=== PATIENT | female | born 1935 | race Caucasian/White ===

== ENCOUNTER 2016-03-24 11:20 | Inpatient (IN) | payer MEDICARE, MEDICAID ==
[2016-03-24] MEDS ORDERED: METHYLPREDNISOLONE 125 MG/2 ML VIAL IV ONE (11:45)
[2016-03-24] MEDS ORDERED: ALBUTEROL 0.083% 3 ML NEB NEB ONE (11:45)
[2016-03-24] MEDS ORDERED: Albuterol/Ipratropium Neb 3 ML NEB NEB ONE (11:45)
[2016-03-24] MEDS ORDERED: NS 1,000 ML IV ONE (11:50)
[2016-03-24 11:51] LABS: AUTOMATED BASOPHIL 0.3 % (0-2); AUTOMATED EOSINOPHIL 0.9 % (0-5); AUTOMATED LYMPH 12.1 % (17-44); AUTOMATED MONOCYTE 8.3 % (3-10); AUTOMATED NEUTROPHIL 78.4 % (45-76); MPV 6.8 fL (7.4-10.4)
--- NOTE | 2016-03-24 11:53 | EDPRACDOC ---
- General Information Information Source: Patient Mode of Arrival: Ambulance - History of Present Illness Onset: days HPI: Pt c/o L chest pain radiating to L shoulder, sob, productive cough, leg swelling x days. Pt states recently admitted at [facility] for PNA and bronchitis. Denies fever, abd pain, changes in bowel or bladder, rash. Pt currently at rehab facility and was put on oxygen. Chest Pain Location: Reports: Left Chest Pain Radiation: Reports: Shoulder (L) Symptoms Occur: Reports: Gradually Cardiac Risk Factors: Reports: Smoker (quit in August) Prehospital Care: Reports: SL NTG Pain Came On: Reports: Gradually Pain Status: Present Now Pain Description: Reports: Tightness Pain Severity: Moderate Pain Worsens With: Reports: Nothing Pain Improves With: Reports: Nothing Associated Signs and Symptoms: Reports: SOB <Winifred Ta - Last Filed: 03/24/16 12:34> - History of Present Illness HPI: MD NOTE SEEN AND EXAMINED; OLD RECORDS REVIEWED; HERE WITH SHOB; MED LIST REVIEWED. NSR CURRENTLY; WILL TX FOR HCAP <Sushil Leiva - Last Filed: 03/24/16 12:37> - General Information Stated Complaint: CHEST PAIN, SHOB Time Seen by Provider: 03/24/16 11:44 Home Medications: Home Medications Acetaminophen [Mapap] 1,000 mg PO Q8H PRN 03/24/16 Acidoph/L.bulg/Bif.b/S.thermop [Stephanie-Bid Caplet] 1 tab PO BID 03/24/16 Albuterol/Ipratropium Neb [Duoneb] 3 ml NEB Q6H 03/24/16 Albuterol/Ipratropium Neb [Duoneb] 3 ml NEB Q6H PRN 03/24/16 Bisacodyl [Dulcolax] 5 mg PO DAILY PRN 03/24/16 Butalbital/Acetaminophen [Tencon 50-325 mg Tablet] 2 tab PO Q6H PRN 03/24/16 Cyclobenzaprine HCl [Flexeril] 5 mg PO Q8H PRN 03/24/16 Diltiazem HCl [Diltiazem 24Hr ER] 180 mg PO DAILY 03/24/16 Doxepin HCl 50 mg PO QHS 03/24/16 Furosemide [Lasix] 40 mg PO DAILY PRN 03/24/16 Gabapentin 600 mg PO TID 03/24/16 Insulin Detemir [Levemir Flextouch] 30 unit SQ QAM 03/24/16 Isosorbide Mononitrate [Isosorbide Mononitrate ER] 30 mg PO DAILY 03/24/16 Levofloxacin [Levaquin] 500 mg PO DAILY 03/24/16 Levothyroxine Sodium [Synthroid] 125 mcg PO DAILY 03/24/16 Lisinopril [Zestril] 2.5 mg PO DAILY 03/24/16 Magnesium Oxide [Mag-Ox] 400 mg PO BID 03/24/16 Midodrine HCl 5 mg PO TID 03/24/16 Nicotine [Nicoderm] 21 mg TOP DAILY 03/24/16 Nitroglycerin [Nitrostat] 0.4 mg SL Q5MX3 PRN 03/24/16 Omeprazole 20 mg PO DAILY 03/24/16 Ondansetron HCl [Zofran] 4 mg PO Q8H PRN 03/24/16 Oxycodone HCl/Acetaminophen [Percocet 5-325 mg Tablet] 2 tab PO Q4H PRN Pravastatin [Pravachol] 40 mg PO QHS 03/24/16 Prednisone [Deltasone, Orasone] 10 mg PO DIR 03/24/16 Ranolazine [Ranexa] 500 mg PO Q12H 03/24/16 Sennosides 17.2 mg PO QHS 03/24/16 Sucralfate [Carafate] 1 gm PO QID 03/24/16 Topiramate [Topamax] 50 mg PO QHS 03/24/16 Warfarin Sodium [Coumadin] 5 mg PO DAILY 03/24/16 Allergies/Adverse Reactions: Allergies Allergy/AdvReac Type Severity Reaction Status Date / Time aspirin [From Percodan] Allergy Unknown Verified 03/24/16 12:20 atropine Allergy Unknown Verified 03/24/16 12:01 clarithromycin [From Biaxin] Allergy Unknown Verified 03/24/16 12:01 codeine Allergy Unknown Verified 03/24/16 12:01 diazepam [From Valium] Allergy Unknown Verified 03/24/16 12:20 erythromycin base Allergy Unknown Verified 03/24/16 12:01 fenoprofen [From Nalfon] Allergy Unknown Verified 03/24/16 12:20 levallorphan Allergy Unknown Verified 03/24/16 12:01 meperidine [From Demerol] Allergy Unknown Verified 03/24/16 12:01 morphine Allergy Unknown Verified 03/24/16 12:20 naloxone Allergy Unknown Verified 03/24/16 12:20 oxycodone Allergy Unknown Verified 03/24/16 12:20 Penicillins Allergy Unknown Verified 03/24/16 12:20 pentazocine [From Talwin] Allergy Unknown Verified 03/24/16 12:20 prochlorperazine Allergy Unknown Verified 03/24/16 12:01 [From Compazine] Sulfa (Sulfonamide Allergy Unknown Verified 03/24/16 12:20 Antibiotics) ED Past Medical History - History Reviewed Yes Nurses notes reviewed and agree except as marked - Social Medical History Smoking Status: Former smoker ETOH: None Substance Abuse: None <Winifred Ta - Last Filed: 03/24/16 12:34> EDM Review of Systems - Review of Systems Constitutional: Fever, Weakness Ears: No Symptoms Reported. negative: Pain, Hearing Loss, Drainage, Ear Pulling Throat: No Symptoms Reported. negative: Pain, Swelling Nose: No Symptoms Reported. negative: Congestion, Bleeding, Discharge, Injection, Swelling, Deformity, Ecchymosis, Tender, Abrasion, Laceration Mouth: No Symptoms Reported. negative: Pain, Drooling Respiratory: Cough, Shortness of Breath Cardiovascular: Chest Pain Gastrointestinal: No Symptoms Reported. negative: Pain, Constipation, Nausea, Vomiting, Diarrhea, Melena, Formula Intolerance Genitourinary: No Symptoms Reported. negative: Dysuria, Hematuria, Frequency, Discharge, Bleeding, Testicular Pain, Neurological: No Symptoms Reported. negative: Headache, Dizziness, Seizure, Numbness, Weakness, Speech Difficulty, Gait Difficulty Musculoskeletal: No Symptoms Reported. negative: Neck, Chestwall, Ribs, Back, Shoulder, Arm, Elbow, Forearm, Wrist, Hand, Pelvis, Hip, Femur, Knee, Leg, Ankle , Foot Integumentary: No Symptoms Reported. negative: Itching, Rash, Bruising, Wound Allergic/Immunologic: No Symptoms Reported. negative: Hives, Itching Hematologic: No Symptoms Reported. negative: Lymphadenopathy, Easy Bruising, Easy Bleeding Psychiatric: No Symptoms Reported. negative: Anxiety, Depression, Hallucinations, Insomnia, Suicidal <Winifred Ta E - Last Filed: 03/24/16 12:34> - Physical Exam Constitutional: Alert Oriented to: Time, Person, Place Last recorded Vital Signs: Oxygen Pulse Oxygen Saturation O2 Device Oxygen Flow Rate Fraction of Inspired Oxygen ( FIO2) - HEENT Head: Normal ( normocephalic) Eye Exam: Normal (PERRL, EOMI, Sclera white) Neck: Normal (FROM, trachea at midline) - Respiratory/Cardiovascular Respiratory: Rales, Rhonchi Cardiovascular: Normal - GI Auscultation: Normal (NABS) Palpation: Normal (Soft,No rebound or guarding, non distended) Tenderness: Non tender - Musculoskeletal Back: Normal (Non-Tender) Extremities: Edema, Pedal Edema (+1 edema in feet) - Integumentary Skin: Normal, Warm, Dry Lymphatics: Normal (no adenopathy) - Neurologic Memory Impaired: Normal Motor Function: Normal (Normal tone, Pulses 2+ No cyanosis or edema, FROM) Mood Description: Normal Perception: Normal <Winifred Ta - Last Filed: 03/24/16 12:34> - Physical Exam Last recorded Vital Signs: Last Vital Signs Temp 98.9 F 03/24/16 11:20 Pulse 89 03/24/16 11:20 Resp 20 03/24/16 11:30 BP 94/51 L 03/24/16 11:20 Pulse Ox 78 L 03/24/16 11:20 Oxygen Pulse Oxygen Saturation 78 O2 Device Nasal Cannula Oxygen Flow Rate 2 Fraction of Inspired Oxygen ( FIO2) <Sushil Leiva - Last Filed: 03/24/16 12:37> ED Chest Pain Exam - Respiratory/Cardiovascular Respiratory: Rales, Rhonchi Cardiovascular/Chest: Normal Radial Pulse: Normal Edema: 1+ Chest Palpation: Normal (No chest tenderness) <Winifred Ta - Last Filed: 03/24/16 12:34> - Action ASA given in the ED: Yes - Results 03/24/16 11:40 03/24/16 11:40 03/24/16 12:31 Laboratory Results - last 24 hr 03/24/16 03/24/16 03/24/16 11:40 11:40 11:40 WBC 10.3 RBC 3.48 L Hgb 10.8 L Hct 32.4 L MCV 93 MCH 31.0 MCHC 33.2 RDW 15.4 H Plt Count 351 MPV 6.8 L Neut % (Auto) 78.4 H Lymph % (Auto) 12.1 L [place] % (Auto) 8.3 Eos % (Auto) 0.9 Baso % (Auto) 0.3 Absolute Neuts (auto) 8.03 Absolute Lymphs (auto) 1.24 PT 30.8 H INR 3.0 APTT 40.3 H Puncture Site pH pCO2 pO2 HCO3 Total CO2 Base Excess FiO2 % Specimen Drawn By Sodium 134 L Potassium 4.0 Chloride 97 L Carbon Dioxide 29 Anion Gap 12 BUN 12 Creatinine 0.80 Estimated GFR (MDRD) > 60 Glucose 181 H Calculated Osmolality 263 L Lactic Acid Calcium 8.4 Corrected Calcium 9.3 Total Bilirubin 0.4 AST 15 ALT 24 Alkaline Phosphatase 146 Troponin I 0.07 Qhz-N-Gquyyzbqnwh Pept 3140 H Total Protein 6.4 Albumin 3.1 L 03/24/16 03/24/16 11:40 11:50 WBC RBC Hgb Hct MCV MCH MCHC RDW Plt Count MPV Neut % (Auto) Lymph % (Auto) [place] % (Auto) Eos % (Auto) Baso % (Auto) Absolute Neuts (auto) Absolute Lymphs (auto) PT INR APTT Puncture Site Right radial pH 7.430 pCO2 43.0 pO2 51.0 L HCO3 28.5 H Total CO2 29.8 H Base Excess 3.7 H FiO2 % 2 lpm nc Specimen Drawn By Belja Sodium Potassium Chloride Carbon Dioxide Anion Gap BUN Creatinine Estimated GFR (MDRD) Glucose Calculated Osmolality Lactic Acid 1.6 Calcium Corrected Calcium Total Bilirubin AST ALT Alkaline Phosphatase Troponin I Bjx-K-Olthufzqbzn Pept Total Protein Albumin - EKG EKG #1 EKG Time: 11:43 Rate: bpm: 86 [place]: Normal Rhythm: NSR Block: None ST: Nonsp Comments: no old ekg - Diagnostic Imaging Chest Image interpreted by: Radiologist IMPRESSION: Bronchitic changes. Mild vascular congestion. Bibasilar airspace opacities could reflect edema or infection. <Winifred Ta E - Last Filed: 03/24/16 12:34> - Results 03/24/16 11:40 03/24/16 11:40 WBC 10.3 xk/uL (3.8-10.8) 03/24/16 11:40 RBC 3.48 xM/uL (4.20-5.40) L 03/24/16 11:40 Hgb 10.8 g/dL (12.0-16.0) L 03/24/16 11:40 Hct 32.4 % (36-47) L 03/24/16 11:40 MCV 93 fL (81-99) 03/24/16 11:40 MCH 31.0 pg (27-32) 03/24/16 11:40 MCHC 33.2 g/dl (33-36) 03/24/16 11:40 RDW 15.4 % (11.5-14.5) H 03/24/16 11:40 Plt Count 351 xk/uL (130-400) 03/24/16 11:40 MPV 6.8 fL (7.4-10.4) L 03/24/16 11:40 Neut % (Auto) 78.4 % (45-76) H 03/24/16 11:40 Lymph % (Auto) 12.1 % (17-44) L 03/24/16 11:40 [place] % (Auto) 8.3 % (3-10) 03/24/16 11:40 Eos % (Auto) 0.9 % (0-5) 03/24/16 11:40 Baso % (Auto) 0.3 % (0-2) 03/24/16 11:40 Absolute Neuts (auto) 8.03 xk/uL (1.7-8.2) 03/24/16 11:40 Absolute Lymphs (auto) 1.24 xk/uL (0.65-4.75) 03/24/16 11:40 PT 30.8 SEC (9.2-11.2) H 03/24/16 11:40 INR 3.0 03/24/16 11:40 APTT 40.3 SEC (22-35) H 03/24/16 11:40 Puncture Site Right radial 03/24/16 11:50 pH 7.430 pH UNITS (7.35-7.45) 03/24/16 11:50 pCO2 43.0 mmHg (35-45) 03/24/16 11:50 pO2 51.0 mmHg (80-100) L 03/24/16 11:50 HCO3 28.5 MMOL/L (22-26) H 03/24/16 11:50 Total CO2 29.8 MMOL/L (23-27) H 03/24/16 11:50 Base Excess 3.7 (+/- 2) H 03/24/16 11:50 FiO2 % 2 lpm nc 03/24/16 11:50 Specimen Drawn By Candi 03/24/16 11:50 Sodium 134 mEq/L (137-146) L 03/24/16 11:40 Potassium 4.0 mEq/L (3.5-5.1) 03/24/16 11:40 Chloride 97 mEq/L (98-107) L 03/24/16 11:40 Carbon Dioxide 29 mMOL/L (22-33) 03/24/16 11:40 Anion Gap 12 mEq/L (8-16) 03/24/16 11:40 BUN 12 MG/DL (7-17) 03/24/16 11:40 Creatinine 0.80 MG/DL (0.52-1.04) 03/24/16 11:40 Estimated GFR (MDRD) > 60 mL/min (>=60) 03/24/16 11:40 Glucose 181 MG/DL (70-99) H 03/24/16 11:40 Calculated Osmolality 263 MOs/Kg (270-290) L 03/24/16 11:40 Lactic Acid 1.6 mEq/L (0.7-2.1) 03/24/16 11:40 Calcium 8.4 MG/DL (8.4-10.2) 03/24/16 11:40 Corrected Calcium 9.3 MG/DL (8.4-10.2) 03/24/16 11:40 Total Bilirubin 0.4 MG/DL (0.2-1.3) 03/24/16 11:40 AST 15 IU/L (14-36) 03/24/16 11:40 ALT 24 IU/L (9-52) 03/24/16 11:40 Alkaline Phosphatase 146 IU/L (55-165) 03/24/16 11:40 Troponin I 0.07 ng/mL (<.04) 03/24/16 11:40 Jly-Z-Lfgvzyafpup Pept 3140 pg/mL (0-1800) H 03/24/16 11:40 Total Protein 6.4 G/DL (6.3-8.2) 03/24/16 11:40 Albumin 3.1 G/DL (3.5-5.0) L 03/24/16 11:40 Lab Results 03/24/16 03/24/16 03/24/16 11:50 11:40 11:40 WBC RBC Hgb Hct MCV MCH MCHC RDW Plt Count MPV Neut % (Auto) Lymph % (Auto) [place] % (Auto) Eos % (Auto) Baso % (Auto) Absolute Neuts (auto) Absolute Lymphs (auto) PT 30.8 H INR 3.0 APTT 40.3 H Puncture Site Right radial pH 7.430 pCO2 43.0 pO2 51.0 L HCO3 28.5 H Total CO2 29.8 H Base Excess 3.7 H FiO2 % 2 lpm nc Specimen Drawn By Belja Sodium Potassium Chloride Carbon Dioxide Anion Gap BUN Creatinine Estimated GFR (MDRD) Glucose Calculated Osmolality Lactic Acid 1.6 Calcium Corrected Calcium Total Bilirubin AST ALT Alkaline Phosphatase Troponin I Kds-I-Hipslcahsqh Pept Total Protein Albumin 03/24/16 03/24/16 11:40 11:40 WBC 10.3 RBC 3.48 L Hgb 10.8 L Hct 32.4 L MCV 93 MCH 31.0 MCHC 33.2 RDW 15.4 H Plt Count 351 MPV 6.8 L Neut % (Auto) 78.4 H Lymph % (Auto) 12.1 L [place] % (Auto) 8.3 Eos % (Auto) 0.9 Baso % (Auto) 0.3 Absolute Neuts (auto) 8.03 Absolute Lymphs (auto) 1.24 PT INR APTT Puncture Site pH pCO2 pO2 HCO3 Total CO2 Base Excess FiO2 % Specimen Drawn By Sodium 134 L Potassium 4.0 Chloride 97 L Carbon Dioxide 29 Anion Gap 12 BUN 12 Creatinine 0.80 Estimated GFR (MDRD) > 60 Glucose 181 H Calculated Osmolality 263 L Lactic Acid Calcium 8.4 Corrected Calcium 9.3 Total Bilirubin 0.4 AST 15 ALT 24 Alkaline Phosphatase 146 Troponin I 0.07 Rxp-O-Uupbvbsldia Pept 3140 H Total Protein 6.4 Albumin 3.1 L Laboratory Results - last 24 hr 03/24/16 03/24/16 03/24/16 11:40 11:40 11:40 WBC 10.3 RBC 3.48 L Hgb 10.8 L Hct 32.4 L MCV 93 MCH 31.0 MCHC 33.2 RDW 15.4 H Plt Count 351 MPV 6.8 L Neut % (Auto) 78.4 H Lymph % (Auto) 12.1 L [place] % (Auto) 8.3 Eos % (Auto) 0.9 Baso % (Auto) 0.3 Absolute Neuts (auto) 8.03 Absolute Lymphs (auto) 1.24 PT 30.8 H INR 3.0 APTT 40.3 H Puncture Site pH pCO2 pO2 HCO3 Total CO2 Base Excess FiO2 % Specimen Drawn By Sodium 134 L Potassium 4.0 Chloride 97 L Carbon Dioxide 29 Anion Gap 12 BUN 12 Creatinine 0.80 Estimated GFR (MDRD) > 60 Glucose 181 H Calculated Osmolality 263 L Lactic Acid Calcium 8.4 Corrected Calcium 9.3 Total Bilirubin 0.4 AST 15 ALT 24 Alkaline Phosphatase 146 Troponin I 0.07 Nzf-P-Tomtbxgycsm Pept 3140 H Total Protein 6.4 Albumin 3.1 L 03/24/16 03/24/16 11:40 11:50 WBC RBC Hgb Hct MCV MCH MCHC RDW Plt Count MPV Neut % (Auto) Lymph % (Auto) [place] % (Auto) Eos % (Auto) Baso % (Auto) Absolute Neuts (auto) Absolute Lymphs (auto) PT INR APTT Puncture Site Right radial pH 7.430 pCO2 43.0 pO2 51.0 L HCO3 28.5 H Total CO2 29.8 H Base Excess 3.7 H FiO2 % 2 lpm nc Specimen Drawn By Belja Sodium Potassium Chloride Carbon Dioxide Anion Gap BUN Creatinine Estimated GFR (MDRD) Glucose Calculated Osmolality Lactic Acid 1.6 Calcium Corrected Calcium Total Bilirubin AST ALT Alkaline Phosphatase Troponin I Osa-Y-Veultgygpjv Pept Total Protein Albumin Laboratory Results 03/24/16 11:40 03/24/16 11:40 <Sushil Leiva - Last Filed: 03/24/16 12:37> ED Critical Care Note - Critical Care Note Total Time (mins): 35 <Sushil Leiva - Last Filed: 03/24/16 12:37> - Departure Disposition: Admit IP To This Hospital Education/Counseling Given To: Patient Education/Counseling Given Regarding: Diagnosis, Treatment Decision to Admit Time: 12:34 (Dr Leiva contacted Dr Falk for admission) Decision to admit date: 03/24/16 Decision to admit: from ED - Physician Consulted Hospitalist Time Called: 12:35 Provider Called: Avinash Falk <Winifred Ta - Last Filed: 03/24/16 12:34> <Sushil Leiva - Last Filed: 03/24/16 12:37> - Departure Condition: Stable Final Diagnosis: HCAP (healthcare-associated pneumonia), Hypoxia CHF (congestive heart failure) Qualifiers: Congestive heart failure type: unspecified congestive heart failure type Congestive heart failure chronicity: unspecified congestive heart failure chronicity Qualified Code(s): I50.9 - Heart failure, unspecified Chest pain Qualifiers: Chest pain type: unspecified Qualified Code(s): R07.9 - Chest pain, unspecified Instructions: *Heart Failure (Activity, Diet, Worsening Symptoms, Weight Monitoring)(ED), Chest Pain (ED), Chest Wall Pain Referrals: Mike Rodríguez MD [Primary Care Provider] - One Week Prescriptions: No Action Warfarin Sodium [Coumadin] 5 mg PO DAILY Nitroglycerin [Nitrostat] 0.4 mg SL Q5MX3 PRN PRN Reason: Chest Pain Or Discomfort Acidoph/L.bulg/Bif.b/S.thermop [Stephanie-Bid Caplet] 1 tab PO BID Furosemide [Lasix] 40 mg PO DAILY PRN PRN Reason: Edema Bisacodyl [Dulcolax] 5 mg PO DAILY PRN PRN Reason: Constipation Ondansetron HCl [Zofran] 4 mg PO Q8H PRN PRN Reason: Nausea/Vomiting Cyclobenzaprine HCl [Flexeril] 5 mg PO Q8H PRN PRN Reason: Muscle Spasms Acetaminophen [Mapap] 1,000 mg PO Q8H PRN PRN Reason: Pain Butalbital/Acetaminophen [Tencon 50-325 mg Tablet] 2 tab PO Q6H PRN PRN Reason: Headache Albuterol/Ipratropium Neb [Duoneb] 3 ml NEB Q6H PRN PRN Reason: Shortness Of Breath Sucralfate [Carafate] 1 gm PO QID Oxycodone HCl/Acetaminophen [Percocet 5-325 mg Tablet] 2 tab PO Q4H PRN PRN Reason: Pain Midodrine HCl 5 mg PO TID Albuterol/Ipratropium Neb [Duoneb] 3 ml NEB Q6H Magnesium Oxide [Mag-Ox] 400 mg PO BID Gabapentin 600 mg PO TID Topiramate [Topamax] 50 mg PO QHS Levofloxacin [Levaquin] 500 mg PO DAILY Pravastatin [Pravachol] 40 mg PO QHS Doxepin HCl 50 mg PO QHS Sennosides 17.2 mg PO QHS Nicotine [Nicoderm] 21 mg TOP DAILY Isosorbide Mononitrate [Isosorbide Mononitrate ER] 30 mg PO DAILY Lisinopril [Zestril] 2.5 mg PO DAILY Insulin Detemir [Levemir Flextouch] 30 unit SQ QAM Diltiazem HCl [Diltiazem 24Hr ER] 180 mg PO DAILY Prednisone [Deltasone, Orasone] 10 mg PO DIR Levothyroxine Sodium [Synthroid] 125 mcg PO DAILY Omeprazole 20 mg PO DAILY Ranolazine [Ranexa] 500 mg PO Q12H
[2016-03-24 11:59] LABS: BLOOD UREA NITROGEN 12 MG/DL (7-17); CALC CORRECTED 9.3 MG/DL (8.4-10.2); CALCIUM 8.4 MG/DL (8.4-10.2); CALCULATED OSMOLALITY 263 MOs/Kg (270-290); CHLORIDE 97 mEq/L (98-107); GLUCOSE 181 MG/DL (70-99); SODIUM LEVEL 134 mEq/L (137-146); TOTAL PROTEIN 6.4 G/DL (6.3-8.2)
[2016-03-24 12:01] LABS: ALLEN'S TEST PASS; BEb 3.7 (+/- 2); TCO2 29.8 MMOL/L (23-27)
[2016-03-24 12:01] LABS: PARTIAL THROMB. TIME 40.3 SEC (22-35)
[2016-03-24] MEDS ORDERED: ASPIRIN (CHEWABLE) 81 MG TAB PO ONE (12:01)
[2016-03-24 12:02] LABS: ABG Draw Site Right Radial
--- NOTE | 2016-03-24 12:06 | DIRPT ---
CLINICAL DATA: Shortness of breath for 6 months. Chest pain for 3 days. EXAM: PORTABLE CHEST 1 VIEW COMPARISON: None. FINDINGS: Heart is normal size. There is mild peribronchial thickening, vascular congestion and bibasilar airspace opacities. No effusions. No acute bony abnormality. IMPRESSION: Bronchitic changes. Mild vascular congestion. Bibasilar airspace opacities could reflect edema or infection. Electronically Signed By: Philip Egan M.D. On: 03/24/2016 12:03
[2016-03-24] MEDS ORDERED: CEFEPIME HYDROCHLORIDE 2 GM in D5W 100 ML IV ONE (12:31)
[2016-03-24] MEDS ORDERED: Levofloxacin 750 mg/150 ml D5W 750 MG/150 ML RTU IV ONE (12:31)
[2016-03-24] MEDS: NS 1,000 ML IV SCH (13:22)
[2016-03-24] MEDS ORDERED: Docusate Sodium 100 MG CAP PO PRN (13:58)
[2016-03-24] MEDS ORDERED: Albuterol/Ipratropium Neb 3 ML NEB NEB PRN (13:58)
[2016-03-24] MEDS ORDERED: ACETAMINOPHEN 325 MG/TAB TABLET PO PRN (13:58)
[2016-03-24] MEDS ORDERED: BENZONATATE 100 MG PERLES PO PRN (13:58)
[2016-03-24] MEDS ORDERED: DEXTROSE 25 GM/50 ML PFS IV PRN (13:58)
[2016-03-24] MEDS ORDERED: MAGNESIUM HYDROXIDE 30 ML BOTTLE PO PRN (13:58)
[2016-03-24] MEDS ORDERED: GLUCAGON 1 MG VIAL SQ PRN (13:58)
[2016-03-24] MEDS ORDERED: ONDANSETRON HCL 4 MG/2 ML VIAL IV PRN (13:58)
[2016-03-24] MEDS ORDERED: GLUCOSE (ORAL GEL) 15 GM TUBE PO PRN (13:58)
[2016-03-24] MEDS ORDERED: ACETAMINOPHEN 1000 MG PO PRN (14:07)
[2016-03-24] MEDS ORDERED: [UNRECOGNIZED DRUG - OTHER] PO PRN (14:07)
[2016-03-24] MEDS ORDERED: BUTALBITAL PO PRN (14:07)
[2016-03-24] MEDS ORDERED: CYCLOBENZAPRINE 5 MG TAB PO PRN (14:07)
[2016-03-24] MEDS ORDERED: BISACODYL 5 MG TAB PO PRN (14:07)
[2016-03-24] MEDS ORDERED: ACETAMINOPHEN PO PRN (14:07)
[2016-03-24 14:11] LABS: LEUKOCYTES/URINE NEG (NEGATIVE); NITRITE/URINE NEG (NEGATIVE); RBC/URINE 0-2 (0-5); URINE OCCULT BLOOD NEG (NEG/TRACE)
--- NOTE | 2016-03-24 14:11 | HISTPHYS ---
- Chief Complaint chest pain, shortness of breath - History of Present Illness Ms Ku is an 80-year-old white female with multiple medical problems and a very complicated recent medical history. Unfortunately she is a poor historian and we have no records available here as she has recently been hospitalized in [place]. She apparently has known heart disease but has refused any intervention. She is followed regularly by Dr. Patrick in [place]. She was in the hospital in [place] in January or early February following a fall and a hip fracture. She has been at [facility] for the last week or so. She has been having increasing cough and shortness of breath over the last week. She was started on Levaquin at the facility but has not been improving and was referred to the emergency room for further evaluation and management. In the emergency room she is moderately hypoxic, wheezing diffusely with increased respiratory distress. She and her family stated very clearly that she is DNR but that they do want treatment for pain and respiratory issues. X-rays in the emergency room suggest bibasilar pneumonia. Given her hypoxia, respiratory distress, and multiple medical issues she will be admitted to the hospital for further evaluation and management. - Medical History Cardiac History: Reports: Coronary Artery Disease, Hypertension, Heart Attack, Hypercholesterolemia Respiratory History: Reports: COPD, Bronchitis GI/ History: Reports: No Significant History Musculoskeletal History: Reports: Arthritis Systemic History: Reports: Diabetes, Hypothyroidism Neurological History: Reports: No Significant History Psychological History: Reports: No Significant History. Denies: Depression - Surgical History Reports: Other (Recent hip fracture) - Medictions/Allergies Allergies aspirin [From Percodan] Allergy (Verified 03/24/16 12:20) Unknown atropine Allergy (Verified 03/24/16 12:01) Unknown clarithromycin [From Biaxin] Allergy (Verified 03/24/16 12:01) Unknown codeine Allergy (Verified 03/24/16 12:01) Unknown diazepam [From Valium] Allergy (Verified 03/24/16 12:20) Unknown erythromycin base Allergy (Verified 03/24/16 12:01) Unknown fenoprofen [From Nalfon] Allergy (Verified 03/24/16 12:20) Unknown levallorphan Allergy (Verified 03/24/16 12:01) Unknown meperidine [From Demerol] Allergy (Verified 03/24/16 12:01) Unknown morphine Allergy (Verified 03/24/16 12:20) Unknown naloxone Allergy (Verified 03/24/16 12:20) Unknown oxycodone Allergy (Verified 03/24/16 12:20) Unknown Penicillins Allergy (Verified 03/24/16 12:20) Unknown pentazocine [From Talwin] Allergy (Verified 03/24/16 12:20) Unknown prochlorperazine [From Compazine] Allergy (Verified 03/24/16 12:01) Unknown Sulfa (Sulfonamide Antibiotics) Allergy (Verified 03/24/16 12:20) Unknown Current Medication List: Reviewed Home Medications Acetaminophen [Mapap] 1,000 mg PO Q8H PRN 03/24/16 Acidoph/L.bulg/Bif.b/S.thermop [Stephanie-Bid Caplet] 1 tab PO BID 03/24/16 Albuterol/Ipratropium Neb [Duoneb] 3 ml NEB Q6H 03/24/16 Albuterol/Ipratropium Neb [Duoneb] 3 ml NEB Q6H PRN 03/24/16 Bisacodyl [Dulcolax] 5 mg PO DAILY PRN 03/24/16 Butalbital/Acetaminophen [Tencon 50-325 mg Tablet] 2 tab PO Q6H PRN 03/24/16 Cyclobenzaprine HCl [Flexeril] 5 mg PO Q8H PRN 03/24/16 Diltiazem HCl [Diltiazem 24Hr ER] 180 mg PO DAILY 03/24/16 Doxepin HCl 50 mg PO QHS 03/24/16 Furosemide [Lasix] 40 mg PO DAILY PRN 03/24/16 Gabapentin 600 mg PO TID 03/24/16 Insulin Detemir [Levemir Flextouch] 30 unit SQ QAM 03/24/16 Isosorbide Mononitrate [Isosorbide Mononitrate ER] 30 mg PO DAILY 03/24/16 Levofloxacin [Levaquin] 500 mg PO DAILY 03/24/16 Levothyroxine Sodium [Synthroid] 125 mcg PO DAILY 03/24/16 Lisinopril [Zestril] 2.5 mg PO DAILY 03/24/16 Magnesium Oxide [Mag-Ox] 400 mg PO BID 03/24/16 Midodrine HCl 5 mg PO TID 03/24/16 Nicotine [Nicoderm] 21 mg TOP DAILY 03/24/16 Nitroglycerin [Nitrostat] 0.4 mg SL Q5MX3 PRN 03/24/16 Omeprazole 20 mg PO DAILY 03/24/16 Ondansetron HCl [Zofran] 4 mg PO Q8H PRN 03/24/16 Oxycodone HCl/Acetaminophen [Percocet 5-325 mg Tablet] 2 tab PO Q4H PRN Pravastatin [Pravachol] 40 mg PO QHS 03/24/16 Prednisone [Deltasone, Orasone] 10 mg PO DIR 03/24/16 Ranolazine [Ranexa] 500 mg PO Q12H 03/24/16 Sennosides 17.2 mg PO QHS 03/24/16 Sucralfate [Carafate] 1 gm PO QID 03/24/16 Topiramate [Topamax] 50 mg PO QHS 03/24/16 Warfarin Sodium [Coumadin] 5 mg PO DAILY 03/24/16 - Family History Reports: Hypertension, Diabetes, Cardiac Disorders - Social History Travel Outside of [place] in the Last 3 Months?: No Lives: in Senior Living/SNF Smoking Status: Former smoker Social History: Denies: Alcohol Use - Review of Systems Constitutional: Fever, Fatigue, Weakness. negative: Chills - Eyes No Symptoms Reported. negative: Blurred Vision, Double Vision - Ears No Symptoms Reported. negative: Drainage, Hearing Loss - Nose No Symptoms Reported. negative: Abrasion, Bleeding - Mouth Mouth: No Symptoms Reported. negative: Pain, Drooling, Denture - Throat/Neck No Symptoms Reported. negative: Pain, Swelling, Hoarseness, Snoring - Respiratory Cough, Shortness of Breath, Wheezing, Bronchitis. negative: Hemoptysis - Cardiovascular No Symptoms Reported. negative: Orthopnea, Palpitations - Gastrointestinal Gastrointestinal: No Symptoms Reported. negative: Nausea, Vomiting, Abdominal Pain - Genitourinary Genitourinary: No Symptoms Reported. negative: Bleeding, Dysuria, Discharge - Neurological No Symptoms Reported. negative: Dizziness, Seizure, Speech Difficulty - Musculoskeletal Musculoskeletal:: No Symptoms Reported. negative: Chronic low back pain, Stiffness, Gout, Weakness - Integumentary No Symptoms Reported. negative: Bruising, Rash, Wound - Allergic/Immunologic No Symptoms Reported. negative: Hives, Itching - Hematologic No Symptoms Reported. negative: Lymphadenopathy, Easy Bruising, Anemia - Endocrine No Symptoms Reported. negative: Weight Gain, Weight Loss, Excessive Sweating, Heat Intolerance, Cold Intolerance - Psychiatric No Symptoms Reported. negative: Anxiety, Hallucinations - Physical Exam Constitutional: Alert, Distress, Well nourished. negative: Well appearing ( Chronically ill-appearing) Oriented to: Time, Person, Place Exam: Last Vital Signs Temp 98.9 F 03/24/16 11:20 Pulse 106 03/24/16 13:23 Resp 16 03/24/16 13:23 BP 101/54 L 03/24/16 13:23 Pulse Ox 97 03/24/16 13:23 Intake & Output 03/23/16 03/24/16 03/24/16 23:59 07:59 15:59 Patient's weight 77.111 kg - HEENT Head: Normal ( normocephalic) Eye: Normal (PERRL, EOMI, Sclera white) Oropharynx: Normal Nose: No Symptoms Reported. negative: Congestion, Bleeding, Discharge, Injection, Swelling, Deformity, Ecchymosis, Tender, Abrasion, Laceration - Respiratory/Cardiovascular Respiratory: Rales, Rhonchi, Tachypnea, Wheezes Cardiovascular: Tachycardia - GI Auscultation: Normal (NABS) Palpation: Normal (Soft,No rebound or guarding, non distended) Tenderness: Non tender - Musculoskeletal Back: Normal (Non-Tender). negative: Abrasion Extremities: Edema, Pedal Edema (+1 edema in feet) - Integumentary Skin: Normal, Warm, Dry Lymphatics: Normal (no adenopathy). negative: Adenopathy - Neurologic Memory Impaired: Normal Motor Function: Normal Cranial Nerve: Normal Cerebellar: Normal Mood Description: Agitated Thought: Coherent Perception: Normal - Focused CV Perfusion Exam Vital Signs: Last Vital Signs Temp 98.9 F 03/24/16 11:20 Pulse 106 03/24/16 13:23 Resp 16 03/24/16 13:23 BP 101/54 L 03/24/16 13:23 Pulse Ox 97 03/24/16 13:23 - Lab Results Laboratory Results - last 24 hr 03/24/16 03/24/16 03/24/16 11:40 11:40 11:40 WBC 10.3 RBC 3.48 L Hgb 10.8 L Hct 32.4 L MCV 93 MCH 31.0 MCHC 33.2 RDW 15.4 H Plt Count 351 MPV 6.8 L Neut % (Auto) 78.4 H Lymph % (Auto) 12.1 L [place] % (Auto) 8.3 Eos % (Auto) 0.9 Baso % (Auto) 0.3 Absolute Neuts (auto) 8.03 Absolute Lymphs (auto) 1.24 PT 30.8 H INR 3.0 APTT 40.3 H Puncture Site pH pCO2 pO2 HCO3 Total CO2 Base Excess FiO2 % Specimen Drawn By Sodium 134 L Potassium 4.0 Chloride 97 L Carbon Dioxide 29 Anion Gap 12 BUN 12 Creatinine 0.80 Estimated GFR (MDRD) > 60 Glucose 181 H Calculated Osmolality 263 L Lactic Acid Calcium 8.4 Corrected Calcium 9.3 Total Bilirubin 0.4 AST 15 ALT 24 Alkaline Phosphatase 146 Troponin I 0.07 Fox-U-Sjehiaqkjij Pept 3140 H Total Protein 6.4 Albumin 3.1 L Digoxin 03/24/16 03/24/16 03/24/16 11:40 11:40 11:50 WBC RBC Hgb Hct MCV MCH MCHC RDW Plt Count MPV Neut % (Auto) Lymph % (Auto) [place] % (Auto) Eos % (Auto) Baso % (Auto) Absolute Neuts (auto) Absolute Lymphs (auto) PT INR APTT Puncture Site Right radial pH 7.430 pCO2 43.0 pO2 51.0 L HCO3 28.5 H Total CO2 29.8 H Base Excess 3.7 H FiO2 % 2 lpm nc Specimen Drawn By Belja Sodium Potassium Chloride Carbon Dioxide Anion Gap BUN Creatinine Estimated GFR (MDRD) Glucose Calculated Osmolality Lactic Acid 1.6 Calcium Corrected Calcium Total Bilirubin AST ALT Alkaline Phosphatase Troponin I Eur-[id number]-Qkwozokwplf Pept Total Protein Albumin Digoxin < 0.40 L - Assessment (1) Acute respiratory failure J96.00 - ACUTE RESPIRATORY FAILURE, UNSP W HYPOXIA OR HYPERCAPNIA Acute Present on Admission: Yes Qualifiers: Respiratory failure complication: hypoxia Qualified Code(s): J96.01 - Acute respiratory failure with hypoxia Severely hypoxic and appears acutely ill. She is wheezing diffusely with increased work of breathing. This appears to be due to COPD and healthcare associated pneumonia. Will admit to telemetry unit. IV steroids, IV antibiotics, nebulizer treatments and pulmonary toilet. Treating as healthcare associated pneumonia with cefepime and Levaquin. Multiple allergies make antibiotic selection difficult (2) HCAP (healthcare-associated pneumonia) J18.9 - PNEUMONIA, UNSPECIFIED ORGANISM Acute Present on Admission: Yes As above with IV cefepime and Levaquin. She has multiple allergies. Monitor and adjust therapy as needed. Sputum and blood cultures if able (3) COPD (chronic obstructive pulmonary disease) J44.9 - CHRONIC OBSTRUCTIVE PULMONARY DISEASE, UNSPECIFIED Acute Present on Admission: Yes Qualifiers: COPD type: COPD with acute exacerbation Chronic bronchitis type: C Emphysema type: E Qualified Code(s): J44.1 - Chronic obstructive pulmonary disease with (acute) exacerbation Wheezing diffusely with increased work of breathing. Continue IV steroids and nebulizer treatments. Activity as able when tolerated. (4) Diabetes mellitus E11.9 - TYPE 2 DIABETES MELLITUS WITHOUT COMPLICATIONS Acute Present on Admission: Yes Qualifiers: Diabetes mellitus type: type 2 Diabetes mellitus complication status: without complication Diabetes mellitus complication detail: D Diabetic retinopathy severity: D Proliferative retinopathy type: P Diabetes mellitus macular edema: D Diabetes mellitus custodial insulin use: with custodial use Laterality: L Chronic kidney disease stage: C Qualified Code(s): E11.9 - Type 2 diabetes mellitus without complications; Z79.4 - middle or intermediate school principal (current) use of insulin Continue home medications. Accu-Cheks and sliding scale insulin. Steroids will likely exacerbate. Monitor (5) CHF (congestive heart failure) I50.9 - HEART FAILURE, UNSPECIFIED Acute Present on Admission: Yes Qualifiers: Congestive heart failure type: unspecified congestive heart failure type Congestive heart failure chronicity: unspecified congestive heart failure chronicity Qualified Code(s): I50.9 - Heart failure, unspecified Per history. Attempting to obtain records from [facility]. (6) Chest pain R07.9 - CHEST PAIN, UNSPECIFIED Acute Present on Admission: Yes Qualifiers: Chest pain type: chest pain on breathing Ischemic chest pain type: I Qualified Code(s): R07.1 - Chest pain on breathing Apparently known disease family states they have wanted to perform interventions but patient has refused this repeatedly. Medical therapy. Serial cardiac enzymes. Obtain records from [place] Case Care Discussed with: Patient, Family Total Time: 1 hour 20 minutes Critical Care: Yes
[2016-03-24] MEDS ORDERED: ACETAMINOPHEN 500 MG CAPLET PO PRN (14:26)
[2016-03-24] MEDS: Albuterol/Ipratropium Neb 3 ML NEB NEB SCH ×2 (14:45→20:01)
[2016-03-24] MEDS ORDERED: INSULIN DETEMIR 100 UNITS/ML PEN SQ SCH (15:00)
[2016-03-24] MEDS ORDERED: WARFARIN EDUCATION DOCUMENTATION ONE (15:00)
[2016-03-24] MEDS: NS/KCl 20 mEq 1,000 ML IV SCH (15:29)
[2016-03-24] MEDS: OXYCODONE HCL 5 MG TABLET PO PRN ×2 (15:36→20:35)
[2016-03-24] MEDS: NICOTINE 21 MG PATCH TOP SCH (15:37)
[2016-03-24] MEDS: IBUPROFEN INTRAVENOUS 400 MG in NS 100 ML IV SCH ×2 (15:37→21:04)
[2016-03-24] MEDS: This patient is receiving warfarin therapy SCH (15:38)
[2016-03-24] MEDS: SUCRALFATE 1 GM TAB PO SCH ×2 (15:39→20:34)
[2016-03-24] MEDS: MAGNESIUM OXIDE 400 MG TAB PO SCH (15:40)
[2016-03-24] MEDS: PROBIOTIC BLEND TAB PO SCH (15:40)
[2016-03-24] MEDS ORDERED: Vaccine Screening Complete SCH (16:00)
[2016-03-24] MEDS: REGULAR INSULIN 100 UNITS/ML - 3 ML VIAL SQ SCH ×2 (16:30→20:44)
[2016-03-24] MEDS: METHYLPREDNISOLONE 125 MG/2 ML VIAL IV SCH (16:31)
[2016-03-24] MEDS: WARFARIN 5 MG TAB PO SCH (16:32)
[2016-03-24] MEDS: GABAPENTIN 300 MG CAP PO SCH (20:34)
[2016-03-24] MEDS: SENNA CONCENTRATE TAB PO SCH (20:34)
[2016-03-24] MEDS: MIDODRINE HCL 5 MG TAB PO SCH (20:34)
[2016-03-24] MEDS: RANOLAZINE 500 MG EXT RELEASE TAB PO SCH (20:34)
[2016-03-24] MEDS: PRAVASTATIN 40 MG TABLET PO SCH (20:34)
[2016-03-24] MEDS: DOXEPIN 25 MG CAP PO SCH (20:35)
[2016-03-24] MEDS: TOPIRAMATE 25 MG TABLET PO SCH (20:35)
[2016-03-24] MEDS ORDERED: BIF B PO SCH (21:00)
[2016-03-24] MEDS ORDERED: S THERMOP PO SCH (21:00)
[2016-03-24] MEDS ORDERED: DOXEPIN HCL 50 MG PO SCH (21:00)
[2016-03-24] MEDS ORDERED: ACIDOPH PO SCH (21:00)
[2016-03-24] MEDS ORDERED: BULG PO SCH (21:00)
[2016-03-24] MEDS ORDERED: Non-Formulary Medication ITEM (Gabapentin [Gabapentin] 600 MG) PO SCH (21:00)
[2016-03-24] MEDS ORDERED: TOPIRAMATE 50 MG PO SCH (21:00)
[2016-03-25] MEDS: METHYLPREDNISOLONE 125 MG/2 ML VIAL IV SCH ×4 (00:13→16:04)
[2016-03-25] MEDS: OXYCODONE HCL 5 MG TABLET PO PRN ×4 (00:34→21:55)
[2016-03-25] MEDS: Albuterol/Ipratropium Neb 3 ML NEB NEB SCH ×4 (02:28→20:03)
[2016-03-25 03:38] LABS: MPV 7.1 fL (7.4-10.4)
[2016-03-25 03:47] LABS: BLOOD UREA NITROGEN 16 MG/DL (7-17); CALCIUM 8.4 MG/DL (8.4-10.2); CALCULATED OSMOLALITY 271 MOs/Kg (270-290); CHLORIDE 100 mEq/L (98-107); GLUCOSE 211 MG/DL (70-99); SODIUM LEVEL 137 mEq/L (137-146)
[2016-03-25 03:48] LABS: PT-INR 2.6
[2016-03-25] MEDS: IBUPROFEN INTRAVENOUS 400 MG in NS 100 ML IV SCH ×2 (04:01→11:21)
[2016-03-25] MEDS: NS/KCl 20 mEq 1,000 ML IV SCH (05:01)
[2016-03-25] MEDS: GABAPENTIN 300 MG CAP PO SCH ×3 (05:07→21:57)
[2016-03-25] MEDS: ISOSORBIDE MONONITRATE 30 MG TAB PO SCH (05:07)
[2016-03-25] MEDS: MIDODRINE HCL 5 MG TAB PO SCH ×3 (05:08→21:57)
[2016-03-25] MEDS: LEVOTHYROXINE 125 MCG (0.125 MG) TAB PO SCH (05:09)
[2016-03-25] MEDS: PANTOPRAZOLE 40 MG TAB PO SCH (05:09)
[2016-03-25] MEDS: SUCRALFATE 1 GM TAB PO SCH ×4 (05:10→21:56)
[2016-03-25] MEDS: REGULAR INSULIN 100 UNITS/ML - 3 ML VIAL SQ SCH ×4 (06:21→21:57)
[2016-03-25] MEDS ORDERED: NICOTINE 21 MG PATCH TOP SCH (09:00)
[2016-03-25] MEDS ORDERED: Non-Formulary Medication ITEM (Omeprazole [Omeprazole] 20 MG) PO SCH (09:00)
[2016-03-25] MEDS: RANOLAZINE 500 MG EXT RELEASE TAB PO SCH ×2 (09:28→21:57)
[2016-03-25] MEDS: INSULIN DETEMIR 100 UNITS/ML PEN SQ SCH (09:28)
[2016-03-25] MEDS: LISINOPRIL 2.5 MG TAB PO SCH (09:29)
[2016-03-25] MEDS ORDERED: FUROSEMIDE 40 MG/4 ML VIAL IV ONE (09:30)
[2016-03-25] MEDS: MAGNESIUM OXIDE 400 MG TAB PO SCH ×2 (11:21→16:04)
[2016-03-25] MEDS: PROBIOTIC BLEND TAB PO SCH ×2 (11:21→16:04)
[2016-03-25] MEDS ORDERED: CEFEPIME HYDROCHLORIDE 2 GM in D5W 100 ML IV SCH (12:00)
[2016-03-25] MEDS: NS 1,000 ML IV SCH (12:10)
[2016-03-25] MEDS ORDERED: Fioricet Tablet PO PRN (12:20)
[2016-03-25] MEDS ORDERED: LIDOCAINE 1% 30 ML VIAL (PRESERVATIVE FREE) ONE (12:32)
[2016-03-25] MEDS: Fioricet Tablet PO PRN ×2 (13:38→17:28)
[2016-03-25] MEDS: NICOTINE 21 MG PATCH TOP SCH (13:40)
--- NOTE | 2016-03-25 13:44 | DIRPT ---
INDICATION: 80-year-old female with pneumonia who has failed outpatient oral antibiotic therapy and now requires intravenous antibiotics. EXAM: PICC LINE PLACEMENT WITH ULTRASOUND AND FLUOROSCOPIC GUIDANCE MEDICATIONS: None ANESTHESIA/SEDATION: None FLUOROSCOPY TIME: Fluoroscopy Time: 0 minutes 6 seconds COMPLICATIONS: None immediate. PROCEDURE: The patient was advised of the possible risks and complications and agreed to undergo the procedure. The patient was then brought to the angiographic suite for the procedure. The right arm was prepped with chlorhexidine, draped in the usual sterile fashion using maximum barrier technique (cap and mask, sterile gown, sterile gloves, large sterile sheet, hand hygiene and cutaneous antisepsis) and infiltrated locally with 1% Lidocaine. Ultrasound demonstrated patency of the right brachial vein, and this was documented with an image. Under real-time ultrasound guidance, this vein was accessed with a 21 gauge micropuncture needle and image documentation was performed. A 0.018 wire was introduced in to the vein. Over this, a 5 Turkish single lumen power PICC was advanced to the lower SVC/right atrial junction. Fluoroscopy during the procedure and fluoro spot radiograph confirms appropriate catheter position. The catheter was flushed and covered with a sterile dressing. Catheter length: 33 cm IMPRESSION: Successful right arm power PICC line placement with ultrasound and fluoroscopic guidance. The catheter is ready for use. Signed, Darren Cooney MD [facility] Electronically Signed By: Darren Cooney M.D. On: 03/25/2016 13:41
--- NOTE | 2016-03-25 14:35 | DIRPT ---
CLINICAL DATA: Congestive heart failure, shortness of breath EXAM: PORTABLE CHEST 1 VIEW COMPARISON: March 24, 2016 FINDINGS: The heart size and mediastinal contours are stable. There is patchy consolidation of left upper lobe and left lower lobe. Increased pulmonary interstitium is identified bilaterally. There is no pleural effusion. The visualized skeletal structures are stable. IMPRESSION: Interstitial pulmonary edema. Patchy consolidation of the left upper lobe and left lower lobe, superimposed pneumonia is not excluded. Electronically Signed By: Annmarie Arrington M.D. On: 03/25/2016 14:24
[2016-03-25] MEDS: This patient is receiving warfarin therapy SCH (16:03)
--- NOTE | 2016-03-25 16:36 | GENMEDPROG ---
Chief Complaint: More congested and short of breath today. Less wheezing. Appears to be in congestive heart failure Notes Reviewed: Yes Events from last night noted and discussed with Clinical Staff Current Medication List: Reviewed Currently: Reports: Cough, LYNCH, SOB, Sputum. Denies: Wheezing, Nausea and Vomiting, Abdominal Pain, Chest Pain - Physical Examination Vital Signs and I&O: Last Vital Signs Temp 97.4 F L 03/25/16 15:45 Pulse 88 03/25/16 15:45 Resp 22 03/25/16 15:45 BP 101/55 L 03/25/16 15:45 Pulse Ox 92 03/25/16 15:45 Oxygen Pulse Oxygen Saturation 92 O2 Device Nasal Cannula Oxygen Flow Rate 5 Fraction of Inspired Oxygen ( FIO2) Intake & Output 03/22/16 03/23/16 03/24/16 03/25/16 23:59 23:59 23:59 23:59 Intake Total 1926 1304 Output Total 2049 2100 Balance -123 -796 Patient's weight 60.963 kg 58.695 kg General: Alert, Oriented x3, Cooperative, Moderate distress, Well nourished. negative: Well appearing (Acutely ill-appearing) HEENT: Normal, PERRLA, EOMI, Anicteric Sclera Neck: Non-tender, Full range of motion, Normal Trachea alignment, Normal inspection. negative: JVD Lymphatics: Normal (no adenopathy). negative: Adenopathy Respiratory: Rales, Rhonchi, Tachypnea, Wheezes Cardiovascular: Regular rate and rhythm, No Gallops,Rubs/Murmurs GI: Normal bowel sounds, Soft, Non tender, No hepatospenomegaly, No masses Extremities/Musculoskeletal: Normal pulses. negative: Tenderness, Swelling, Edema Skin: Warm,Dry and Intact, No rashes Neurological: Strength at 5/5 X4 ext, Cranial nerves 3-12 NL Psych/Mental Status: Appropriate, Normal Affect, Cooperative Lab/DI/Studies Reviewed: Laboratory Results - last 24 hr 03/24/16 03/24/16 03/24/16 11:40 16:28 17:35 WBC RBC Hgb Hct MCV MCH MCHC RDW Plt Count MPV PT INR Sodium Potassium Chloride Carbon Dioxide Anion Gap BUN Creatinine Estimated GFR (MDRD) Glucose POC Capillary Glucose 391 H Hemoglobin A1c 6.6 H Calculated Osmolality Calcium Troponin I 0.03 03/24/16 03/25/16 03/25/16 20:25 03:10 03:10 WBC 7.6 RBC 3.48 L Hgb 10.8 L Hct 32.4 L MCV 93 MCH 31.0 MCHC 33.2 RDW 14.8 H Plt Count 350 MPV 7.1 L PT INR Sodium 137 Potassium 4.5 Chloride 100 Carbon Dioxide 28 Anion Gap 14 BUN 16 Creatinine 0.70 Estimated GFR (MDRD) > 60 Glucose 211 H POC Capillary Glucose 325 H Hemoglobin A1c Calculated Osmolality 271 Calcium 8.4 Troponin I 03/25/16 03/25/16 03/25/16 03:10 05:28 11:40 WBC RBC Hgb Hct MCV MCH MCHC RDW Plt Count MPV PT 27.4 H INR 2.6 Sodium Potassium Chloride Carbon Dioxide Anion Gap BUN Creatinine Estimated GFR (MDRD) Glucose POC Capillary Glucose 230 H 278 H Hemoglobin A1c Calculated Osmolality Calcium Troponin I 03/25/16 15:47 WBC RBC Hgb Hct MCV MCH MCHC RDW Plt Count MPV PT INR Sodium Potassium Chloride Carbon Dioxide Anion Gap BUN Creatinine Estimated GFR (MDRD) Glucose POC Capillary Glucose 209 H Hemoglobin A1c Calculated Osmolality Calcium Troponin I - Assessment (1) Acute respiratory failure Acute J96.00 - ACUTE RESPIRATORY FAILURE, UNSP W HYPOXIA OR HYPERCAPNIA Qualifiers: Respiratory failure complication: hypoxia Qualified Code(s): J96.01 - Acute respiratory failure with hypoxia Comment/Plan: Still very short of breath and congested. Increasing rales today. Appears to be more heart failure today. DC IV fluids and start IV Lasix. Continue nebulizer treatments, IV antibiotics and pulmonary toilet. Continue to treat as healthcare associated pneumonia. Still waiting on records from [place] (2) HCAP (healthcare-associated pneumonia) Acute J18.9 - PNEUMONIA, UNSPECIFIED ORGANISM Comment/Plan: As above with IV cefepime and Levaquin. She has multiple allergies. Monitor and adjust therapy as needed. Sputum and blood cultures if able (3) COPD (chronic obstructive pulmonary disease) Acute J44.9 - CHRONIC OBSTRUCTIVE PULMONARY DISEASE, UNSPECIFIED Qualifiers: COPD type: COPD with acute exacerbation Qualified Code(s): J44.1 - Chronic obstructive pulmonary disease with (acute) exacerbation Comment/Plan: Less wheezing today. Start weaning steroids and continue other care (4) Diabetes mellitus Acute E11.9 - TYPE 2 DIABETES MELLITUS WITHOUT COMPLICATIONS Qualifiers: Diabetes mellitus type: type 2 Diabetes mellitus complication status: without complication Diabetes mellitus assisted insulin use: with assisted use Qualified Code(s): E11.9 - Type 2 diabetes mellitus without complications ; Z79.4 - long term care social worker (current) use of insulin Comment/Plan: Continue home medications. Accu-Cheks and sliding scale insulin. Steroids will likely exacerbate. Monitor (5) CHF (congestive heart failure) Acute I50.9 - HEART FAILURE, UNSPECIFIED Qualifiers: Congestive heart failure type: unspecified congestive heart failure type Congestive heart failure chronicity: unspecified congestive heart failure chronicity Qualified Code(s): I50.9 - Heart failure, unspecified Comment/Plan: Symptoms and exam are more consistent with congestive heart failure today. DC IV fluids, recheck chest x-ray, IV Lasix and monitor. (6) Chest pain Acute R07.9 - CHEST PAIN, UNSPECIFIED Qualifiers: Chest pain type: chest pain on breathing Qualified Code(s): R07.1 - Chest pain on breathing Comment/Plan: Apparently known disease family states they have wanted to perform interventions but patient has refused this repeatedly. Medical therapy. Serial cardiac enzymes. Obtain records from [place] Case Care Discussed with: Patient, Nursing Staff, Resource Management, Respiratory Therapy Total Time: 45 minutes Critical Care: Yes
[2016-03-25] MEDS: FUROSEMIDE 40 MG/4 ML VIAL IV SCH ×2 (18:07→22:00)
[2016-03-25] MEDS: WARFARIN 5 MG TAB PO SCH (18:07)
[2016-03-25] MEDS: PRAVASTATIN 40 MG TABLET PO SCH (21:57)
[2016-03-25] MEDS: TOPIRAMATE 25 MG TABLET PO SCH (21:58)
[2016-03-25] MEDS: SENNA CONCENTRATE TAB PO SCH (21:58)
[2016-03-25] MEDS: DOXEPIN 25 MG CAP PO SCH (21:58)
[2016-03-26] MEDS: GUAIFENESIN 200 MG/10 ML UDC PO PRN ×2 (00:39→18:03)
[2016-03-26] MEDS: METHYLPREDNISOLONE 125 MG/2 ML VIAL IV SCH ×2 (02:03→09:44)
[2016-03-26] MEDS: Albuterol/Ipratropium Neb 3 ML NEB NEB SCH ×4 (02:37→20:25)
[2016-03-26] MEDS: FUROSEMIDE 40 MG/4 ML VIAL IV SCH ×3 (05:27→22:08)
[2016-03-26] MEDS: MIDODRINE HCL 5 MG TAB PO SCH ×3 (05:27→19:40)
[2016-03-26] MEDS: GABAPENTIN 300 MG CAP PO SCH ×3 (05:27→19:39)
[2016-03-26] MEDS: ISOSORBIDE MONONITRATE 30 MG TAB PO SCH (05:27)
[2016-03-26] MEDS: PANTOPRAZOLE 40 MG TAB PO SCH (05:28)
[2016-03-26] MEDS: SUCRALFATE 1 GM TAB PO SCH ×4 (05:29→19:39)
[2016-03-26] MEDS: LEVOTHYROXINE 125 MCG (0.125 MG) TAB PO SCH (05:29)
[2016-03-26] MEDS: OXYCODONE HCL 5 MG TABLET PO PRN ×2 (05:34→09:54)
[2016-03-26] MEDS: REGULAR INSULIN 100 UNITS/ML - 3 ML VIAL SQ SCH ×4 (05:35→19:42)
[2016-03-26 05:49] LABS: MPV 7.1 fL (7.4-10.4)
[2016-03-26 06:23] LABS: BLOOD UREA NITROGEN 19 MG/DL (7-17); CALCIUM 8.1 MG/DL (8.4-10.2); CALCULATED OSMOLALITY 271 MOs/Kg (270-290); CHLORIDE 96 mEq/L (98-107); GLUCOSE 160 MG/DL (70-99); SODIUM LEVEL 138 mEq/L (137-146)
[2016-03-26] MEDS: LISINOPRIL 2.5 MG TAB PO SCH (07:41)
[2016-03-26 08:26] LABS: SEG NEUTROPHIL 91 % (45-76)
[2016-03-26] MEDS: INSULIN DETEMIR 100 UNITS/ML PEN SQ SCH (09:43)
[2016-03-26] MEDS: RANOLAZINE 500 MG EXT RELEASE TAB PO SCH ×2 (09:44→19:40)
[2016-03-26] MEDS: MAGNESIUM OXIDE 400 MG TAB PO SCH ×2 (09:44→17:54)
[2016-03-26] MEDS: PROBIOTIC BLEND TAB PO SCH ×2 (09:44→17:57)
--- NOTE | 2016-03-26 10:09 | GENMEDPROG ---
Chief Complaint: Urine Culture with multidrug resistant Enterococcus. She has multiple allergies. Will adjust antibiotics accordingly. Still concerned that she had had a stroke in the recent past. Notes Reviewed: Yes Events from last night noted and discussed with Clinical Staff Current Medication List: Reviewed Currently: Reports: Cough, LYNCH, SOB, Sputum. Denies: Wheezing, Nausea and Vomiting, Abdominal Pain, Chest Pain - Physical Examination Vital Signs and I&O: Last Vital Signs Temp 98.3 F 03/26/16 07:34 Pulse 84 03/26/16 08:00 Resp 20 03/26/16 08:00 BP 98/48 L 03/26/16 07:34 Pulse Ox 92 03/26/16 08:00 Oxygen Pulse Oxygen Saturation 92 O2 Device Nasal Cannula Oxygen Flow Rate 4 Fraction of Inspired Oxygen ( FIO2) Intake & Output 03/23/16 03/24/16 03/25/16 03/26/16 23:59 23:59 23:59 23:59 Intake Total 1926 2122 180 Output Total 2049 3050 2650 Balance -563 -319 -8735 Patient's weight 60.963 kg 58.695 kg 58.922 kg General: Alert, Oriented x3, Cooperative, Moderate distress, Well nourished. negative: Well appearing (Acutely ill-appearing) HEENT: Normal, PERRLA, EOMI, Anicteric Sclera Neck: Non-tender, Full range of motion, Normal Trachea alignment, Normal inspection. negative: JVD Lymphatics: Normal (no adenopathy). negative: Adenopathy Respiratory: Rales, Rhonchi, Tachypnea, Wheezes Cardiovascular: Regular rate and rhythm, No Gallops,Rubs/Murmurs GI: Normal bowel sounds, Soft, Non tender, No hepatospenomegaly, No masses Extremities/Musculoskeletal: Normal pulses. negative: Tenderness, Swelling, Edema Skin: Warm,Dry and Intact, No rashes Neurological: Strength at 5/5 X4 ext, Cranial nerves 3-12 NL Psych/Mental Status: Appropriate, Normal Affect, Cooperative Lab/DI/Studies Reviewed: Laboratory Results - last 24 hr 03/25/16 03/25/16 03/25/16 11:40 15:47 21:34 WBC RBC Hgb Hct MCV MCH MCHC RDW Plt Count MPV Neut % (Auto) Lymph % (Auto) [place] % (Auto) Eos % (Auto) Baso % (Auto) Absolute Neuts (auto) Absolute Lymphs (auto) Seg Neuts % (Manual) Band Neutrophils % Lymphocytes % (Manual) Monocytes % (Manual) Absolute Neutrophils Absolute Lymphocytes Toxic Granulation Platelet Estimate RBC Morphology PT INR Sodium Potassium Chloride Carbon Dioxide Anion Gap BUN Creatinine Estimated GFR (MDRD) Glucose POC Capillary Glucose 278 H 209 H 125 H Calculated Osmolality Calcium 03/26/16 03/26/16 03/26/16 05:29 05:30 05:30 WBC RBC Hgb Hct MCV MCH MCHC RDW Plt Count MPV Neut % (Auto) Lymph % (Auto) [place] % (Auto) Eos % (Auto) Baso % (Auto) Absolute Neuts (auto) Absolute Lymphs (auto) Seg Neuts % (Manual) Band Neutrophils % Lymphocytes % (Manual) Monocytes % (Manual) Absolute Neutrophils Absolute Lymphocytes Toxic Granulation Platelet Estimate RBC Morphology PT 31.3 H INR 3.0 Sodium 138 Potassium 3.4 L Chloride 96 L Carbon Dioxide 32 Anion Gap 13 BUN 19 H Creatinine 0.70 Estimated GFR (MDRD) > 60 Glucose 160 H POC Capillary Glucose 172 H Calculated Osmolality 271 Calcium 8.1 L 03/26/16 05:30 WBC 15.3 H RBC 3.32 L Hgb 10.1 L Hct 30.6 L MCV 92 MCH 30.5 MCHC 33.1 RDW 14.8 H Plt Count 379 MPV 7.1 L Neut % (Auto) Cancelled Lymph % (Auto) Cancelled [place] % (Auto) Cancelled Eos % (Auto) Cancelled Baso % (Auto) Cancelled Absolute Neuts (auto) Cancelled Absolute Lymphs (auto) Cancelled Seg Neuts % (Manual) 91 H Band Neutrophils % 6 H Lymphocytes % (Manual) 2 L Monocytes % (Manual) 1 Absolute Neutrophils 14.84 H Absolute Lymphocytes 0.31 L Toxic Granulation 1+ Platelet Estimate Norm RBC Morphology Norm PT INR Sodium Potassium Chloride Carbon Dioxide Anion Gap BUN Creatinine Estimated GFR (MDRD) Glucose POC Capillary Glucose Calculated Osmolality Calcium - Assessment (1) Acute respiratory failure Acute J96.00 - ACUTE RESPIRATORY FAILURE, UNSP W HYPOXIA OR HYPERCAPNIA Qualifiers: Respiratory failure complication: hypoxia Qualified Code(s): J96.01 - Acute respiratory failure with hypoxia Comment/Plan: Remains very short of breath and congested. Less rales today. No further wheezing. Continue IV Lasix and diuresis. Continue IV antibiotics and pulmonary toilet. Repeat chest x-ray in a.m.. (2) HCAP (healthcare-associated pneumonia) Acute J18.9 - PNEUMONIA, UNSPECIFIED ORGANISM Comment/Plan: Given multidrug resistant Enterococcus in urine will change antibiotics to Zyvox. She does have multiple antibiotic allergies but is unaware of any problems with Zyvox previously. (3) COPD (chronic obstructive pulmonary disease) Acute J44.9 - CHRONIC OBSTRUCTIVE PULMONARY DISEASE, UNSPECIFIED Qualifiers: COPD type: COPD with acute exacerbation Qualified Code(s): J44.1 - Chronic obstructive pulmonary disease with (acute) exacerbation Comment/Plan: Wheezing has resolved. Continue to wean steroids. Increase activity as tolerated. (4) Diabetes mellitus Acute E11.9 - TYPE 2 DIABETES MELLITUS WITHOUT COMPLICATIONS Qualifiers: Diabetes mellitus type: type 2 Diabetes mellitus complication status: without complication Diabetes mellitus skilled nursing insulin use: with skilled nursing use Qualified Code(s): E11.9 - Type 2 diabetes mellitus without complications ; Z79.4 - computer terminal operator (current) use of insulin Comment/Plan: Continue home medications. Accu-Cheks and sliding scale insulin. Steroids will likely exacerbate. Monitor (5) CHF (congestive heart failure) Acute I50.9 - HEART FAILURE, UNSPECIFIED Qualifiers: Congestive heart failure type: unspecified congestive heart failure type Congestive heart failure chronicity: unspecified congestive heart failure chronicity Qualified Code(s): I50.9 - Heart failure, unspecified Comment/Plan: Symptoms and exam are more consistent with congestive heart failure today. DC IV fluids, recheck chest x-ray, IV Lasix and monitor. (6) Chest pain Acute R07.9 - CHEST PAIN, UNSPECIFIED Qualifiers: Chest pain type: chest pain on breathing Qualified Code(s): R07.1 - Chest pain on breathing Comment/Plan: Apparently known disease family states they have wanted to perform interventions but patient has refused this repeatedly. Medical therapy. Serial cardiac enzymes. Obtain records from [facility] Care Discussed with: Patient, Nursing Staff, Physical Therapy, Resource Management, Wreath Maker
[2016-03-26] MEDS: NICOTINE 21 MG PATCH TOP SCH (11:17)
[2016-03-26] MEDS: Linezolid 600 mg/300 ml Premix 600 MG/300 ML RTU IV SCH ×2 (11:17→22:08)
--- NOTE | 2016-03-26 11:17 | DIRPT ---
CLINICAL DATA: Weakness EXAM: CT HEAD WITHOUT CONTRAST TECHNIQUE: Contiguous axial images were obtained from the base of the skull through the vertex without intravenous contrast. COMPARISON: None. FINDINGS: The bony calvarium is intact. Mild atrophic changes are noted. An area prior lacunar infarct is noted within the basal ganglia on the right. Additionally an area of decreased attenuation is noted in the region of the extreme capsule on the right anteriorly. This may represent some subacute ischemia. Scattered areas of chronic white matter ischemia are seen. No findings to suggest acute hemorrhage or space-occupying mass lesion are noted. IMPRESSION: Chronic atrophic and ischemic changes. Question subacute ischemia on the right in the region of the extreme capsule anteriorly. Electronically Signed By: Feng Gutierrez M.D. On: 03/26/2016 11:14
[2016-03-26] MEDS ORDERED: Levofloxacin 750 mg/150 ml D5W 750 MG/150 ML RTU IV SCH (14:00)
[2016-03-26] MEDS: Fioricet Tablet PO PRN (14:34)
[2016-03-26] MEDS: WARFARIN 5 MG TAB PO SCH (17:54)
[2016-03-26] MEDS: This patient is receiving warfarin therapy SCH (17:55)
[2016-03-26] MEDS: METHYLPREDNISOLONE 40 MG/1 ML VIAL IV SCH (17:57)
[2016-03-26] MEDS: TOPIRAMATE 25 MG TABLET PO SCH (19:40)
[2016-03-26] MEDS: SENNA CONCENTRATE TAB PO SCH (19:40)
[2016-03-26] MEDS: PRAVASTATIN 40 MG TABLET PO SCH (19:40)
[2016-03-27] MEDS: METHYLPREDNISOLONE 40 MG/1 ML VIAL IV SCH ×3 (01:22→19:01)
[2016-03-27] MEDS: Albuterol/Ipratropium Neb 3 ML NEB NEB SCH ×4 (02:42→20:35)
[2016-03-27] MEDS: FUROSEMIDE 40 MG/4 ML VIAL IV SCH ×3 (04:50→20:56)
[2016-03-27] MEDS: GABAPENTIN 300 MG CAP PO SCH ×3 (04:51→20:59)
[2016-03-27] MEDS: ISOSORBIDE MONONITRATE 30 MG TAB PO SCH (04:51)
[2016-03-27] MEDS: LEVOTHYROXINE 125 MCG (0.125 MG) TAB PO SCH (04:52)
[2016-03-27] MEDS: SUCRALFATE 1 GM TAB PO SCH ×4 (04:52→20:58)
[2016-03-27] MEDS: MIDODRINE HCL 5 MG TAB PO SCH ×3 (04:52→20:59)
[2016-03-27] MEDS: OXYCODONE HCL 5 MG TABLET PO PRN ×3 (04:52→16:31)
[2016-03-27] MEDS: PANTOPRAZOLE 40 MG TAB PO SCH (04:52)
[2016-03-27 05:25] LABS: MPV 7.4 fL (7.4-10.4)
[2016-03-27 05:29] LABS: PT-INR 4.1
[2016-03-27 05:39] LABS: BLOOD UREA NITROGEN 21 MG/DL (7-17); CALCIUM 8.1 MG/DL (8.4-10.2); CALCULATED OSMOLALITY 266 MOs/Kg (270-290); CHLORIDE 92 mEq/L (98-107); GLUCOSE 144 mg/dL (70-99); SODIUM LEVEL 135 mEq/L (137-146)
[2016-03-27 06:22] LABS: SEG NEUTROPHIL 80 % (45-76)
[2016-03-27] MEDS: REGULAR INSULIN 100 UNITS/ML - 3 ML VIAL SQ SCH ×4 (06:24→20:58)
--- NOTE | 2016-03-27 07:33 | DIRPT ---
CLINICAL DATA: CHF. Pneumonia. EXAM: PORTABLE CHEST 1 VIEW COMPARISON: 03/25/2016. FINDINGS: Right PICC line in stable position. Cardiomegaly with persistent bilateral from interstitial prominence consistent with pulmonary interstitial edema. Slight interim improvement. Low lung volumes with basilar atelectasis. Mild left upper lobe infiltrate. Close follow-up exams suggested to exclude a mass lesion . No pneumothorax. COPD . Left carotid stent. IMPRESSION: 1. Right PICC line stable position. Left carotid stent noted in stable position. 2. Cardiomegaly with mild bilateral pulmonary interstitial prominence consistent with mild congestive heart failure. Interim improvement from prior exam. 3. Mild left upper lobe infiltrate. Close follow-up exam is suggested to exclude a mass lesion. Electronically Signed By: Avinash Blackmon On: 03/27/2016 07:28
[2016-03-27] MEDS: PROBIOTIC BLEND TAB PO SCH ×2 (08:25→19:00)
[2016-03-27] MEDS: MAGNESIUM OXIDE 400 MG TAB PO SCH ×2 (08:25→19:00)
[2016-03-27] MEDS: LISINOPRIL 2.5 MG TAB PO SCH (08:25)
[2016-03-27] MEDS: RANOLAZINE 500 MG EXT RELEASE TAB PO SCH ×2 (08:25→20:59)
[2016-03-27] MEDS: INSULIN DETEMIR 100 UNITS/ML PEN SQ SCH (08:26)
[2016-03-27] MEDS: This patient is receiving warfarin therapy SCH (08:27)
[2016-03-27] MEDS: Fioricet Tablet PO PRN ×2 (08:30→14:55)
--- NOTE | 2016-03-27 11:22 | GENMEDPROG ---
Chief Complaint: Complains of right lower extremity edema for the past several days status post right hip fracture recuperating at [facility]. States her shortness breath is slightly improved and physical therapy is getting her out of bed moving her in the room. Notes Reviewed: Yes: Events from last night noted and discussed with Clinical Staff Current Medication List: Reviewed Currently: Reports: Cough, LYNCH, SOB, Sputum. Denies: Wheezing, Nausea and Vomiting, Abdominal Pain, Chest Pain DVT Prophylaxis: Yes (INR greater than 3 will have to hold the Coumadin) - Physical Examination Vital Signs and I&O: Last Vital Signs Temp 98.3 F 03/27/16 08:00 Pulse 78 03/27/16 10:43 Resp 18 03/27/16 08:00 BP 119/66 03/27/16 08:00 Pulse Ox 91 03/27/16 08:00 Oxygen Pulse Oxygen Saturation 91 O2 Device Nasal Cannula Oxygen Flow Rate 4 Fraction of Inspired Oxygen ( FIO2) Intake & Output 03/24/16 03/25/16 03/26/16 03/27/16 23:59 23:59 23:59 23:59 Intake Total 1926 2123 1424 360 Output Total 2049 3050 4150 900 Balance -123 -927 -2726 -540 Patient's weight 60.963 kg 58.695 kg 58.922 kg 59.012 kg General: Alert, Oriented x3, Cooperative, Moderate distress, Well nourished. negative: Well appearing (Acutely ill-appearing) HEENT: Normal, PERRLA, EOMI, Anicteric Sclera Neck: Non-tender, Full range of motion, Normal Trachea alignment, Normal inspection. negative: JVD Lymphatics: Normal (no adenopathy). negative: Adenopathy Respiratory: Rales, Rhonchi, Tachypnea, Wheezes Cardiovascular: Regular rate and rhythm, No Gallops,Rubs/Murmurs GI: Normal bowel sounds, Soft, Non tender, No hepatospenomegaly, No masses Extremities/Musculoskeletal: Normal pulses. negative: Tenderness, Swelling, Edema Skin: Warm,Dry and Intact, No rashes Neurological: Strength at 5/5 X4 ext, Cranial nerves 3-12 NL Psych/Mental Status: Appropriate, Normal Affect, Cooperative Lab/DI/Studies Reviewed: 03/27/16 04:45 03/27/16 04:45 Laboratory Results - last 24 hr 03/24/16 03/26/16 03/26/16 15:35 11:23 16:05 WBC RBC Hgb Hct MCV MCH MCHC RDW Plt Count MPV Neut % (Auto) Lymph % (Auto) [place] % (Auto) Eos % (Auto) Baso % (Auto) Absolute Neuts (auto) Absolute Lymphs (auto) Seg Neuts % (Manual) Band Neutrophils % Lymphocytes % (Manual) Monocytes % (Manual) Absolute Neutrophils Absolute Lymphocytes Toxic Granulation Platelet Estimate RBC Morphology PT INR Sodium Potassium Chloride Carbon Dioxide Anion Gap BUN Creatinine Estimated GFR (MDRD) Glucose POC Capillary Glucose 228 H 324 H Calculated Osmolality Calcium Ur Random Microalbumin 3.2 03/26/16 03/27/16 03/27/16 19:35 04:45 04:45 WBC RBC Hgb Hct MCV MCH MCHC RDW Plt Count MPV Neut % (Auto) Lymph % (Auto) [place] % (Auto) Eos % (Auto) Baso % (Auto) Absolute Neuts (auto) Absolute Lymphs (auto) Seg Neuts % (Manual) Band Neutrophils % Lymphocytes % (Manual) Monocytes % (Manual) Absolute Neutrophils Absolute Lymphocytes Toxic Granulation Platelet Estimate RBC Morphology PT 42.8 H INR 4.1 Sodium 135 L Potassium 3.6 Chloride 92 L Carbon Dioxide 37 H Anion Gap 10 BUN 21 H Creatinine 0.70 Estimated GFR (MDRD) > 60 Glucose 144 H POC Capillary Glucose 275 H Calculated Osmolality 266 L Calcium 8.1 L Ur Random Microalbumin 03/27/16 03/27/16 04:45 06:09 WBC 17.1 H RBC 3.51 L Hgb 10.7 L Hct 32.1 L MCV 92 MCH 30.3 MCHC 33.2 RDW 15.1 H Plt Count 375 MPV 7.4 Neut % (Auto) Cancelled Lymph % (Auto) Cancelled [place] % (Auto) Cancelled Eos % (Auto) Cancelled Baso % (Auto) Cancelled Absolute Neuts (auto) Cancelled Absolute Lymphs (auto) Cancelled Seg Neuts % (Manual) 80 H Band Neutrophils % 9 H Lymphocytes % (Manual) 7 L Monocytes % (Manual) 4 Absolute Neutrophils 15.22 H Absolute Lymphocytes 1.20 Toxic Granulation 1+ Platelet Estimate Norm RBC Morphology 1+ poik PT INR Sodium Potassium Chloride Carbon Dioxide Anion Gap BUN Creatinine Estimated GFR (MDRD) Glucose POC Capillary Glucose 197 H Calculated Osmolality Calcium Ur Random Microalbumin - Assessment (1) HCAP (healthcare-associated pneumonia) Acute J18.9 - PNEUMONIA, UNSPECIFIED ORGANISM Comment/Plan: 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 I prefer not to give her Zyvox but instead Primaxin which she should tolerate for the pneumonia and would help eradicate the VRE in the urine. Would also like to give her atypical coverage with Levaquin but only temporarily. Pro biotics are ordered. (2) Bacteria in urine Acute R82.71 - BACTERIURIA Comment/Plan: Not sure if this is acute or chronic but does have VRE in urine and would prefer to avoid Zyvox and switch to Primaxin given sensitivity organism to ampicillin. She has not really had any symptoms of UTI. (3) CHF (congestive heart failure) Acute I50.9 - HEART FAILURE, UNSPECIFIED Qualifiers: Congestive heart failure type: unspecified congestive heart failure type Congestive heart failure chronicity: unspecified congestive heart failure chronicity Qualified Code(s): I50.9 - Heart failure, unspecified Comment/Plan: Symptoms and exam are more consistent with congestive heart failure today. Off IV fluids and getting Lasix. BNP was elevated slightly above 3100. Check echocardiogram. Suspect she may have diastolic dysfunction. (4) COPD (chronic obstructive pulmonary disease) Acute J44.9 - CHRONIC OBSTRUCTIVE PULMONARY DISEASE, UNSPECIFIED Qualifiers: COPD type: COPD with acute exacerbation Qualified Code(s): J44.1 - Chronic obstructive pulmonary disease with (acute) exacerbation Comment/Plan: Still has some mild wheezing. Continue to wean steroids. Increase activity as tolerated. Less short breath. (5) Diabetes mellitus Acute E11.9 - TYPE 2 DIABETES MELLITUS WITHOUT COMPLICATIONS Qualifiers: Diabetes mellitus type: type 2 Diabetes mellitus complication status: without complication Diabetes mellitus parts counterman insulin use: with parts counterman use Qualified Code(s): E11.9 - Type 2 diabetes mellitus without complications ; Z79.4 - intermediate card tender (current) use of insulin Comment/Plan: Continue home medications. Accu-Cheks and sliding scale insulin. Steroids will likely exacerbate. Monitor glucoses. Case Care Discussed with: Patient, Nursing Staff, Physical Therapy, Resource Management, Other (Pharmacy) Education/Counseling Given To: Patient Education/Counseling Given Regarding: Diagnosis Total Time: 42 min Critical Care: No Code: 75250 (12+)
[2016-03-27] MEDS: Linezolid 600 mg/300 ml Premix 600 MG/300 ML RTU IV SCH (11:25)
[2016-03-27] MEDS: IMIPENEM CILASTATIN 250 MG in D5W 100 ML IV SCH ×2 (12:14→20:56)
[2016-03-27] MEDS: NICOTINE 21 MG PATCH TOP SCH ×2 (12:14→12:18)
[2016-03-27] MEDS: LEVOFLOXACIN 750 MG TAB PO SCH (12:14)
[2016-03-27] MEDS: PRAVASTATIN 40 MG TABLET PO SCH (20:59)
[2016-03-27] MEDS: SENNA CONCENTRATE TAB PO SCH (20:59)
[2016-03-27] MEDS: TOPIRAMATE 25 MG TABLET PO SCH (21:00)
[2016-03-28] MEDS: Albuterol/Ipratropium Neb 3 ML NEB NEB SCH ×4 (01:14→20:38)
[2016-03-28] MEDS: METHYLPREDNISOLONE 40 MG/1 ML VIAL IV SCH ×3 (01:40→17:14)
[2016-03-28] MEDS: IMIPENEM CILASTATIN 250 MG in D5W 100 ML IV SCH ×3 (04:46→19:38)
[2016-03-28] MEDS: FUROSEMIDE 40 MG/4 ML VIAL IV SCH ×3 (04:48→19:36)
[2016-03-28] MEDS: PANTOPRAZOLE 40 MG TAB PO SCH (04:51)
[2016-03-28] MEDS: ISOSORBIDE MONONITRATE 30 MG TAB PO SCH (04:51)
[2016-03-28] MEDS: GABAPENTIN 300 MG CAP PO SCH ×3 (04:51→19:31)
[2016-03-28] MEDS: MIDODRINE HCL 5 MG TAB PO SCH ×3 (04:51→19:32)
[2016-03-28] MEDS: LEVOTHYROXINE 125 MCG (0.125 MG) TAB PO SCH (04:52)
[2016-03-28] MEDS: SUCRALFATE 1 GM TAB PO SCH ×4 (04:52→19:31)
[2016-03-28] MEDS: Fioricet Tablet PO PRN ×3 (04:55→19:33)
[2016-03-28] MEDS: REGULAR INSULIN 100 UNITS/ML - 3 ML VIAL SQ SCH ×4 (05:57→19:37)
[2016-03-28 06:48] LABS: PT-INR 3.8
--- NOTE | 2016-03-28 07:16 | DIRPT ---
CLINICAL DATA: 80-year-old female with a history of leg pain and swelling EXAM: BILATERAL LOWER EXTREMITY VENOUS DOPPLER ULTRASOUND TECHNIQUE: Ford-scale sonography with graded compression, as well as color Doppler and duplex ultrasound were performed to evaluate the lower extremity deep venous systems from the level of the common femoral vein and including the common femoral, femoral, profunda femoral, popliteal and calf veins including the posterior tibial, peroneal and gastrocnemius veins when visible. The superficial great saphenous vein was also interrogated. Spectral Doppler was utilized to evaluate flow at rest and with distal augmentation maneuvers in the common femoral, femoral and popliteal veins. COMPARISON: None. FINDINGS: RIGHT LOWER EXTREMITY Common Femoral Vein: No evidence of thrombus. Normal compressibility, respiratory phasicity and response to augmentation. Saphenofemoral Junction: No evidence of thrombus. Normal compressibility and flow on color Doppler imaging. Profunda Femoral Vein: No evidence of thrombus. Normal compressibility and flow on color Doppler imaging. Femoral Vein: No evidence of thrombus. Normal compressibility, respiratory phasicity and response to augmentation. Popliteal Vein: No evidence of thrombus. Normal compressibility, respiratory phasicity and response to augmentation. Calf Veins: No evidence of thrombus. Normal compressibility and flow on color Doppler imaging. Superficial Great Saphenous Vein: No evidence of thrombus. Normal compressibility and flow on color Doppler imaging. Other Findings: None. LEFT LOWER EXTREMITY Common Femoral Vein: No evidence of thrombus. Normal compressibility, respiratory phasicity and response to augmentation. Saphenofemoral Junction: No evidence of thrombus. Normal compressibility and flow on color Doppler imaging. Profunda Femoral Vein: No evidence of thrombus. Normal compressibility and flow on color Doppler imaging. Femoral Vein: No evidence of thrombus. Normal compressibility, respiratory phasicity and response to augmentation. Popliteal Vein: No evidence of thrombus. Normal compressibility, respiratory phasicity and response to augmentation. Calf Veins: No evidence of thrombus. Normal compressibility and flow on color Doppler imaging. Superficial Great Saphenous Vein: No evidence of thrombus. Normal compressibility and flow on color Doppler imaging. Other Findings: None. IMPRESSION: Sonographic survey of the bilateral lower extremities negative for DVT. Signed, José Luis Dobbs DO [facility] Electronically Signed By: José Luis Dobbs D.O. On: 03/28/2016 07:13
[2016-03-28] MEDS: INSULIN DETEMIR 100 UNITS/ML PEN SQ SCH (08:07)
[2016-03-28] MEDS: LISINOPRIL 2.5 MG TAB PO SCH (08:09)
[2016-03-28] MEDS: RANOLAZINE 500 MG EXT RELEASE TAB PO SCH ×2 (08:09→19:32)
[2016-03-28] MEDS: PROBIOTIC BLEND TAB PO SCH ×2 (08:09→17:14)
[2016-03-28] MEDS: MAGNESIUM OXIDE 400 MG TAB PO SCH ×2 (08:09→17:14)
[2016-03-28] MEDS: This patient is receiving warfarin therapy SCH (08:10)
--- NOTE | 2016-03-28 09:20 | CAPUECHO ---
INDICATION: SOB / CHF HEIGHT: 160.0 cm (5 ft 3.0 in) WEIGHT: 59.0 kg (130.0 lbs) BP: 106/49 BSA: 1.062993 m MEASUREMENTS 2D RVIDd: 3.7 cm EF Biplane: 56.22 % LAESV MOD A4C: 30.2 ml LAESV MOD A2C: 29.7 ml LAESV Index (A-L): 20.45 ml/m M-MODE IVSd: 0.9 cm LVIDd: 4.7 cm LVPWd: 0.9 cm LVIDs: 3.1 cm EF(Teich): 62 % Ao Diam: 3.1 cm LA Diam: 3.1 cm DOPPLER MV E Aditya: 0.70 m/s MV A Aditya: 0.93 m/s MV PHT: 92.45 ms MVA By PHT: 2.38 cm AV Vmax: 1.25 m/s TR Vmax: 2.86 m/s TR maxP mmHg RVSP: 42.67 mmHg FINDINGS ------- Procedure:2D images, m-mode, color and spectral Doppler were obtained and reviewed. ECG rhythm:Sinus rhythm. Study quality:This was a technically good study. Left Ventricle:The left ventricular cavity size and wall thickneess are normal. Contractility good thorughout, EF 62%, no segmental abnormality. The diastolic filling pattern indicates impaired r elaxation. Right Ventricle:The right ventricle is normal in size and function. Left Atrium:The left atrium is normal in size. Right Atrium:The right atrium is normal in size and function. Septum appears normal. Aortic Valve:The aortic valve is trileaflet with mild sclerosis, good mobility. There is mild ace tral aortic regurgitation. Mitral Valve:Normal appearing mitral valve, no prolapse.. There is trace mitral regurgitation. Tricuspid Valve:The tricuspid valve appears structurally normal. Mild tricuspid regurgitation pres ent. The right ventricular systolic pressure, as measured by Doppler, is 43 mmhg. Pulmonic Valve:The pulmonic valve is normal. Trace/mild (physiologic) pulmonic regurgitation. Aorta:The aortic root, ascending aorta and aortic arch appear normal. IVC:Normal inferior vena cava with normal inspiratory collapse. Pericardium:There is no pericardial effusion. CONCLUSIONS 1. normal left ventricular size and systolic function, EF 62%, no segmental abnormality; impaired relaxation 2. aortic sclerosis with mild aortic regurgitation 3. normal right heart size/fun ction, mild tricuspid regurgitation, mild elevation of pulm artery pressure suggested Electronically Signed By: Rodney Lui MD-- Electronically Signed On: 09:14:02
--- NOTE | 2016-03-28 11:08 | GENMEDPROG ---
Chief Complaint: Very weak able to walk 3 feet today with physical therapy with a drop in her O2 saturation to 88% on 4 L O2 via nasal cannula Notes Reviewed: Yes: Events from last night noted and discussed with Clinical Staff Current Medication List: Reviewed Currently: Reports: Cough, LYNCH, SOB, Sputum. Denies: Wheezing, Nausea and Vomiting, Abdominal Pain, Chest Pain DVT Prophylaxis: Yes (INR greater than 3 will have to hold the Coumadin) - Physical Examination Vital Signs and I&O: Last Vital Signs Temp 99.0 F 03/28/16 04:48 Pulse 83 03/28/16 10:54 Resp 24 03/28/16 10:54 BP 120/88 03/28/16 08:00 Pulse Ox 88 L 03/28/16 10:54 Oxygen Pulse Oxygen Saturation 88 O2 Device Nasal Cannula Oxygen Flow Rate 4.5 Fraction of Inspired Oxygen ( FIO2) Intake & Output 03/25/16 03/26/16 03/27/16 03/28/16 23:59 23:59 23:59 23:59 Intake Total 2123 1424 960 794 Output Total 3050 4150 2350 3300 Balance -554 -3452 -8676 -6120 Patient's weight 58.695 kg 58.922 kg 59.012 kg 55.934 kg General: Alert, Oriented x3, Cooperative, Moderate distress, Well nourished. negative: Well appearing (Acutely ill-appearing) HEENT: Normal, PERRLA, EOMI, Anicteric Sclera Neck: Non-tender, Full range of motion, Normal Trachea alignment, Normal inspection. negative: JVD Lymphatics: Normal (no adenopathy). negative: Adenopathy Respiratory: Rales, Rhonchi, Tachypnea, Wheezes Cardiovascular: Regular rate and rhythm, No Gallops,Rubs/Murmurs GI: Normal bowel sounds, Soft, Non tender, No hepatospenomegaly, No masses Extremities/Musculoskeletal: Normal pulses. 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 I prefer not to give her Zyvox but instead Primaxin which she should tolerate for the pneumonia and would help eradicate the VRE in the urine. Would also like to give her atypical coverage with Levaquin but only temporarily. Pro biotics are ordered. (2) Bacteria in urine Acute R82.71 - BACTERIURIA Comment/Plan: Not sure if this is acute or chronic but does have VRE in urine and would prefer to avoid Zyvox and switch to Primaxin given sensitivity organism to ampicillin. She has not really had any symptoms of UTI. (3) CHF (congestive heart failure) Acute I50.9 - HEART FAILURE, UNSPECIFIED Qualifiers: Congestive heart failure type: unspecified congestive heart failure type Congestive heart failure chronicity: unspecified congestive heart failure chronicity Qualified Code(s): I50.9 - Heart failure, unspecified Comment/Plan: Symptoms and exam are more consistent with congestive heart failure today. Off IV fluids and getting Lasix. BNP was elevated slightly above 3100. Check echocardiogram. Suspect she may have diastolic dysfunction. (4) COPD (chronic obstructive pulmonary disease) Acute J44.9 - CHRONIC OBSTRUCTIVE PULMONARY DISEASE, UNSPECIFIED Qualifiers: COPD type: COPD with acute exacerbation Qualified Code(s): J44.1 - Chronic obstructive pulmonary disease with (acute) exacerbation Comment/Plan: Still has some mild wheezing. Continue to wean steroids. Increase activity as tolerated. Less short breath. (5) Diabetes mellitus Acute E11.9 - TYPE 2 DIABETES MELLITUS WITHOUT COMPLICATIONS Qualifiers: Diabetes mellitus type: type 2 Diabetes mellitus complication status: without complication Diabetes mellitus halfway insulin use: with terminal make up operator use Qualified Code(s): E11.9 - Type 2 diabetes mellitus without complications ; Z79.4 - terminologist (current) use of insulin Comment/Plan: Continue home medications. Accu-Cheks and sliding scale insulin. Steroids will likely exacerbate. Monitor glucoses. (6) Ambulatory dysfunction Acute R26.2 - DIFFICULTY IN WALKING, NOT ELSEWHERE CLASSIFIED Comment/Plan: Physical therapy was able to walk patient 3 feet today concerned that she will need residential placement. Case Care Discussed with: Patient, Nursing Staff, Resource Management Education/Counseling Given To: Patient Education/Counseling Given Regarding: Diagnosis, Treatment Total Time: 39 min Critical Care: No Code: 48991 (12+)
[2016-03-28] MEDS: NICOTINE 21 MG PATCH TOP SCH (11:36)
[2016-03-28] MEDS: PRAVASTATIN 40 MG TABLET PO SCH (19:32)
[2016-03-28] MEDS: SENNA CONCENTRATE TAB PO SCH (19:32)
[2016-03-28] MEDS: TOPIRAMATE 25 MG TABLET PO SCH (19:33)
[2016-03-29] MEDS: Albuterol/Ipratropium Neb 3 ML NEB NEB SCH ×4 (02:33→19:50)
[2016-03-29 02:58] LABS: PT-INR 2.5
[2016-03-29] MEDS: IMIPENEM CILASTATIN 250 MG in D5W 100 ML IV SCH ×3 (03:10→19:59)
[2016-03-29] MEDS: METHYLPREDNISOLONE 40 MG/1 ML VIAL IV SCH ×3 (03:10→21:53)
[2016-03-29] MEDS: PANTOPRAZOLE 40 MG TAB PO SCH (05:29)
[2016-03-29] MEDS: GABAPENTIN 300 MG CAP PO SCH ×3 (05:29→19:58)
[2016-03-29] MEDS: SUCRALFATE 1 GM TAB PO SCH ×4 (05:29→19:59)
[2016-03-29] MEDS: MIDODRINE HCL 5 MG TAB PO SCH ×3 (05:29→20:02)
[2016-03-29] MEDS: LEVOTHYROXINE 125 MCG (0.125 MG) TAB PO SCH (05:29)
[2016-03-29] MEDS: ISOSORBIDE MONONITRATE 30 MG TAB PO SCH (05:29)
[2016-03-29] MEDS: Fioricet Tablet PO PRN ×3 (05:31→15:14)
[2016-03-29] MEDS: FUROSEMIDE 40 MG/4 ML VIAL IV SCH ×4 (05:33→20:09)
[2016-03-29] MEDS: REGULAR INSULIN 100 UNITS/ML - 3 ML VIAL SQ SCH ×4 (05:35→21:54)
--- NOTE | 2016-03-29 07:50 | DIRPT ---
CLINICAL DATA: Pneumonia follow-up . EXAM: PORTABLE CHEST 1 VIEW COMPARISON: 03/27/2016. 03/25/2016. 03/24/2016. FINDINGS: Right PICC line stable position. Stable cardiomegaly. Mild persistent interstitial prominence. A component of the interstitial changes may be related to chronic interstitial lung disease. Persistent left upper lobe atelectasis and/or infiltrate. Continued close follow-up chest x-rays recommended to demonstrate clearing. If this density does not clear nonenhanced chest CT is suggested to exclude a mass lesion in the left upper lobe . IMPRESSION: 1. Right PICC line stable position. 2. Stable cardiomegaly with mild interstitial prominence. A component interstitial prominence may be chronic. 3. Persistent unchanged ill-defined density in the left upper lobe. This could represent subsegmental atelectasis and/or infiltrate. Continued close follow-up chest x-rays suggested. If this density does not clear nonenhanced chest CT is suggested to exclude a mass lesion. Electronically Signed By: Avinash Blackmon On: 03/29/2016 07:47
[2016-03-29] MEDS: LISINOPRIL 2.5 MG TAB PO SCH (09:02)
[2016-03-29] MEDS: MAGNESIUM OXIDE 400 MG TAB PO SCH ×2 (09:03→18:16)
[2016-03-29] MEDS: PROBIOTIC BLEND TAB PO SCH ×2 (09:03→18:20)
[2016-03-29] MEDS: LEVOFLOXACIN 750 MG TAB PO SCH (09:03)
[2016-03-29] MEDS: RANOLAZINE 500 MG EXT RELEASE TAB PO SCH ×2 (09:03→20:04)
[2016-03-29] MEDS: INSULIN DETEMIR 100 UNITS/ML PEN SQ SCH (09:03)
[2016-03-29] MEDS: This patient is receiving warfarin therapy SCH (09:07)
[2016-03-29] MEDS: NICOTINE 21 MG PATCH TOP SCH (11:56)
[2016-03-29] MEDS: NYSTATIN ORAL SUSP 5 ML PO SCH ×3 (14:04→20:01)
[2016-03-29] MEDS: MAGIC MOUTHWASH 180 ML ORAL SUSP PO SCH ×3 (14:05→20:00)
--- NOTE | 2016-03-29 16:58 | GENMEDPROG ---
Chief Complaint: Sore mouth and throat with white tongue. I got nystatin and Magic mouthwash at [facility] for this. Notes Reviewed: Yes: Events from last night noted and discussed with Clinical Staff Current Medication List: Reviewed Currently: Reports: Cough, LYNCH, SOB, Sputum. Denies: Wheezing, Nausea and Vomiting, Abdominal Pain, Chest Pain DVT Prophylaxis: Yes (INR greater than 3 will have to hold the Coumadin) - Physical Examination Vital Signs and I&O: Last Vital Signs Temp 97.8 F 03/29/16 16:08 Pulse 87 03/29/16 16:08 Resp 18 03/29/16 16:08 BP 96/49 L 03/29/16 16:08 Pulse Ox 88 L 03/29/16 16:08 Oxygen Pulse Oxygen Saturation 88 O2 Device Nasal Cannula Oxygen Flow Rate 4 Fraction of Inspired Oxygen ( FIO2) Intake & Output 03/26/16 03/27/16 03/28/16 03/29/16 23:59 23:59 23:59 23:59 Intake Total 3117 388 4247 600 Output Total 4150 1960 5944 1200 Balance -2726 -1390 -2006 -600 Patient's weight 58.922 kg 59.012 kg 55.934 kg 55.474 kg General: Alert, Oriented x3, Cooperative, Moderate distress, Well nourished. negative: Well appearing (Acutely ill-appearing) HEENT: Normal, PERRLA, EOMI, Anicteric Sclera, Other (White tongue coating) Neck: Non-tender, Full range of motion, Normal Trachea alignment, Normal inspection. negative: JVD Lymphatics: Normal (no adenopathy). negative: Adenopathy Respiratory: Rales, Rhonchi, Tachypnea, Wheezes Cardiovascular: Regular rate and rhythm, No Gallops,Rubs/Murmurs GI: Normal bowel sounds, Soft, Non tender, No hepatospenomegaly, No masses Extremities/Musculoskeletal: Normal pulses. negative: Tenderness, Swelling, Edema Skin: Warm,Dry and Intact, No rashes Neurological: Strength at 5/5 X4 ext, Cranial nerves 3-12 NL Psych/Mental Status: Appropriate, Normal Affect, Cooperative Lab/DI/Studies Reviewed: 03/27/16 04:45 03/27/16 04:45 Laboratory Results - last 24 hr 02/04/1203/29/16 03/29/16 19:37 02:20 05:12 PT 26.1 H INR 2.5 POC Capillary Glucose 267 H 286 H 03/29/16 03/29/16 11:01 15:55 PT INR POC Capillary Glucose 363 H 330 H - Assessment (1) HCAP (healthcare-associated pneumonia) Acute J18.9 - PNEUMONIA, UNSPECIFIED ORGANISM Comment/Plan: Getting Primaxin Levaquin and probiotic for her pneumonia. Chest x-ray shows persistent right upper lobe infiltrate may warrant CT of chest if not improving within the next few weeks. (2) Bacteria in urine Acute R82.71 - BACTERIURIA Comment/Plan: VRE in urine is sensitive to ampicillin. Since she has pneumonia she is getting Primaxin for this and the UTI as she is allergic to penicillin. (3) CHF (congestive heart failure) Acute I50.9 - HEART FAILURE, UNSPECIFIED Qualifiers: Congestive heart failure type: unspecified congestive heart failure type Congestive heart failure chronicity: unspecified congestive heart failure chronicity Qualified Code(s): I50.9 - Heart failure, unspecified Comment/Plan: Patient is lost 5 L of fluid since admission equal to 5 kg of weight and less short of breath. Will decrease the IV Lasix and recheck her BNP. Chest x-ray shows right upper lobe infiltrate. (4) COPD (chronic obstructive pulmonary disease) Acute J44.9 - CHRONIC OBSTRUCTIVE PULMONARY DISEASE, UNSPECIFIED Qualifiers: COPD type: COPD with acute exacerbation Qualified Code(s): J44.1 - Chronic obstructive pulmonary disease with (acute) exacerbation Comment/Plan: Still has some mild wheezing. Continue to wean steroids. Increase activity as tolerated. Less short breath. (5) Diabetes mellitus Acute E11.9 - TYPE 2 DIABETES MELLITUS WITHOUT COMPLICATIONS Qualifiers: Diabetes mellitus type: type 2 Diabetes mellitus complication status: without complication Diabetes mellitus watermaster insulin use: with custodial use Qualified Code(s): E11.9 - Type 2 diabetes mellitus without complications ; Z79.4 - nursing home (current) use of insulin Comment/Plan: Continue home medications. Accu-Cheks and sliding scale insulin. Steroids will likely exacerbate. Monitor glucoses. (6) Ambulatory dysfunction Acute R26.2 - DIFFICULTY IN WALKING, NOT ELSEWHERE CLASSIFIED Comment/Plan: Physical therapy was able to walk patient 3 feet yesterday concerned that she will need residential placement. Additional Notes: Medical team conference was held on the patient discussion of diagnosis treatments plans and prognosis as well as disposition. In addition to myself the following team members were present nursing, physical therapy, speech therapy, occupational therapy, case management, social work, nutrition, leather tanner , palliative care, and home health nursing. Input from each discipline was received and is incorporated in the plan of care in the medical record as well as in the plans in the progress notes. Disposition Plan: group home placement to attempt to get her back to [place]. Case Care Discussed with: Patient, Nursing Staff, Resource Management Education/Counseling Given To: Patient Education/Counseling Given Regarding: Diagnosis, Treatment Total Time: 36 minutes in addition to greater than 30 minute spent in multi disciplinary case conference discussing her this past week. Critical Care: No Code: 12339 (12+) (995)
[2016-03-29] MEDS: WARFARIN 5 MG TAB PO SCH (18:16)
[2016-03-29] MEDS ORDERED: NITROGLYCERINE 0.4 MG TAB SL ONE (19:49)
[2016-03-29] MEDS: ZOLPIDEM TARTRATE 5 MG TAB PO PRN ×2 (19:57→21:54)
[2016-03-29] MEDS: OXYCODONE HCL 5 MG TABLET PO PRN (19:57)
[2016-03-29] MEDS: TOPIRAMATE 25 MG TABLET PO SCH (19:59)
[2016-03-29] MEDS: PRAVASTATIN 40 MG TABLET PO SCH (20:01)
[2016-03-29] MEDS: SENNA CONCENTRATE TAB PO SCH (20:07)
--- NOTE | 2016-03-29 22:22 | DIRPT ---
CLINICAL DATA: Patient with congestive heart failure and pneumonia. EXAM: PORTABLE CHEST 1 VIEW COMPARISON: Chest radiograph 03/29/2016 FINDINGS: Right upper extremity PICC line tip projects over the superior vena cava. Monitoring leads overlie the patient. Stable cardiac and mediastinal contours. Interval worsening diffuse bilateral mid lower lung heterogeneous pulmonary opacities. Biapical emphysematous change. Left upper lung heterogeneous opacity largely obscured due to overlying monitoring lead. Possible small left pleural effusion. IMPRESSION: Worsening bilateral mid and lower lung interstitial airspace opacities which may represent atelectasis, edema and/or infection. A portion of these findings may represent chronic underlying lung disease. Focal opacity within the left upper lung may be related to acute process. Underlying pulmonary malignancy is not excluded. Recommend correlation with dedicated chest CT after resolution of acute process. Electronically Signed By: Mp Dent M.D. On: 03/29/2016 22:19
[2016-03-29] MEDS ORDERED: FUROSEMIDE 40 MG/4 ML VIAL IV ONE (23:02)
--- NOTE | 2016-03-29 23:04 | GENMEDPROG ---
Chief Complaint: CRITICAL CARE NOTE 03/29/16 2100 S: CALLED BY NURSE. PATIENT HAS SHAKING MOVEMENTS BUT ONLY OF HER LEFT HAND. IS TALKING WHILE SHE IS SHAKING. SHAKING STOPS WHEN PATIENT IS DISTRACTED. HAS BECOME MORE SHORT OF BREATH. O2 SATS DECREASING. Subjective Note: CRITICAL CARE NOTE 03/29/16 2100 S: CALLED BY NURSE. PATIENT HAS SHAKING MOVEMENTS BUT ONLY OF HER LEFT HAND. IS TALKING WHILE SHE IS SHAKING. SHAKING STOPS WHEN PATIENT IS DISTRACTED. HAD CHEST PAIN. HAS BECOME MORE SHORT OF BREATH. O2 SATS DECREASING. Patient reports: GENERAL: Fatigue. No fever. HEENT: No nasal discharge or bleeding. No throat pain or swelling. RESPIRATORY: Shortness of breath, cough, wheezing. CARDIOVASCULAR:Chest pain, palpitations. GI: Nausea. No abdominal pain, vomiting. NEUROLOGICAL: Left hand/arm shaking. No headache. No focal weakness but has generalized weakness. INTEGUMENT: no rashes, itching, or lesions. MUSCULOSKELETAL: no new pain or joint swelling. GENITOURINARY: No dysuria or hematuria. Notes Reviewed: Yes: Events from last night noted and discussed with Clinical Staff Current Medication List: Reviewed Currently: Reports: Cough, LYNCH, SOB, Sputum, Chest Pain. Denies: Wheezing, Nausea and Vomiting, Abdominal Pain DVT Prophylaxis: Yes (Warfarin) - Physical Examination Vital Signs and I&O: Last Vital Signs Temp 97.6 F 03/29/16 20:00 Pulse 80 03/29/16 22:43 Resp 18 03/29/16 16:08 BP 122/0 L 03/29/16 20:00 Pulse Ox 86 L 03/29/16 22:43 Oxygen Pulse Oxygen Saturation 86 O2 Device Venturi Mask Oxygen Flow Rate 4 Fraction of Inspired Oxygen ( 55 FIO2) Intake & Output 03/27/16 03/28/16 03/29/16 03/30/16 05:59 05:59 05:59 05:59 Intake Total 1244 1154 1275 1370 Output Total 1500 4850 975 1450 Balance -256 -3696 300 -80 Patient's weight 59.012 kg 55.934 kg 55.474 kg General: Alert, Cooperative, Severe distress, Well nourished. negative: Well appearing (Acutely ill-appearing) HEENT: Normal, PERRLA, EOMI, Anicteric Sclera, Other (White tongue coating) Neck: Non-tender, Full range of motion, Normal Trachea alignment, Normal inspection. negative: JVD Lymphatics: Normal (no adenopathy). negative: Adenopathy Respiratory: Rhonchi, Tachypnea, Wheezes Cardiovascular: Regular rate and rhythm, No Gallops,Rubs/Murmurs GI: Normal bowel sounds, Soft, Non tender, No hepatospenomegaly, No masses Extremities/Musculoskeletal: negative: Tenderness, Swelling, Edema, Clubbing Skin: Warm,Dry and Intact, No rashes Neurological: Cranial nerves 3-12 NL, Reflexes 2+ Psych/Mental Status: Appropriate, Cooperative, Anxious GENERAL: Acutely ill-appearing, well nourished, in acute distress. HEENT: Normocephalic, atraumatic; pupils equal and round. Nares patent, without discharge or bleeding. No oropharyngeal lesions or erythema. Mucous membranes are dry. NECK: is supple, no masses, trachea midline. RESPIRATORY: Clear to auscultation bilaterally. Chest wall movements are symmetric. Tachypnea and use of accessory muscles to breathe. Rhonchi noted. No wheezing. Decreased breath sounds in bases bilaterally. CARDIOVASCULAR: Normal S1, S2. No rubs, or gallops. PMI non-displaced. Carotids : no carotid bruits. Tachycardia. DP pulses 1-2+ bilaterally. GI: soft, nontender, non-distended, normal active bowel sounds. No hepatosplenomegaly. INTEGUMENT: Clean, dry, and intact. No rashes. MUSCULOSKELETAL: Moving all extremities. No cyanosis. No clubbing. Edema: none bilaterally. NEUROLOGICAL: Cranial nerves 2-12 grossly intact. Motor 4-/5 throughout. Reflexes: 2+ bilaterally. Babinski: toes downgoing bilaterally. Intact Finger to nose. Sensory grossly intact to light touch. Intact rapid alternating movements bilaterally. No pronator drift. Intermittent coarse tremor of left hand and lower arm. The tremor stops when patient is distracted, when she squeezes her hand, or is asked to perform a task. PSYCHIATRIC: Oriented. Anxious affect. LYMPHATIC: No cervical lymphadenopathy. No supraclavicular lymphadenopathy. Lab/DI/Studies Reviewed: Laboratory Tests 03/24/16 03/24/16 03/24/16 11:40 11:40 11:40 WBC 10.3 RBC 3.48 L Hgb 10.8 L Hct 32.4 L MCV 93 MCH 31.0 MCHC 33.2 RDW 15.4 H Plt Count 351 MPV 6.8 L Neut % (Auto) 78.4 H Lymph % (Auto) 12.1 L [place] % (Auto) 8.3 Eos % (Auto) 0.9 Baso % (Auto) 0.3 Absolute Neuts (auto) 8.03 Absolute Lymphs (auto) 1.24 Seg Neuts % (Manual) Band Neutrophils % Lymphocytes % (Manual) Monocytes % (Manual) Absolute Neutrophils Absolute Lymphocytes Toxic Granulation Platelet Estimate RBC Morphology PT 30.8 H INR 3.0 APTT 40.3 H D-Dimer Quant (PE/DVT) Puncture Site pH pCO2 pO2 HCO3 Total CO2 Base Excess Vent Mode FiO2 % Specimen Drawn By Sodium 134 L Potassium 4.0 Chloride 97 L Carbon Dioxide 29 Anion Gap 12 BUN 12 Creatinine 0.80 Estimated GFR (MDRD) > 60 Glucose 181 H POC Capillary Glucose Hemoglobin A1c Calculated Osmolality 263 L Lactic Acid Calcium 8.4 Corrected Calcium 9.3 Magnesium Total Bilirubin 0.4 AST 15 ALT 24 Alkaline Phosphatase 146 Creatine Kinase Troponin I 0.07 Izb-E-Vzipwbekese Pept 3140 H Total Protein 6.4 Albumin 3.1 L Urine Color Urine Clarity Urine pH Ur Specific [place] Urine Protein Urine Glucose (UA) Urine Ketones Urine Occult Blood Urine Nitrite Urine Bilirubin Urine Urobilinogen Ur Leukocyte Esterase Urine RBC Ur Epithelial Cells Urine Bacteria Urine Mucus Ur Random Microalbumin Digoxin 03/24/16 03/24/16 03/24/16 11:40 11:40 11:40 WBC RBC Hgb Hct MCV MCH MCHC RDW Plt Count MPV Neut % (Auto) Lymph % (Auto) [place] % (Auto) Eos % (Auto) Baso % (Auto) Absolute Neuts (auto) Absolute Lymphs (auto) Seg Neuts % (Manual) Band Neutrophils % Lymphocytes % (Manual) Monocytes % (Manual) Absolute Neutrophils Absolute Lymphocytes Toxic Granulation Platelet Estimate RBC Morphology PT INR APTT D-Dimer Quant (PE/DVT) Puncture Site pH pCO2 pO2 HCO3 Total CO2 Base Excess Vent Mode FiO2 % Specimen Drawn By Sodium Potassium Chloride Carbon Dioxide Anion Gap BUN Creatinine Estimated GFR (MDRD) Glucose POC Capillary Glucose Hemoglobin A1c 6.6 H Calculated Osmolality Lactic Acid 1.6 Calcium Corrected Calcium Magnesium Total Bilirubin AST ALT Alkaline Phosphatase Creatine Kinase Troponin I [id number] Pept Total Protein Albumin Urine Color Urine Clarity Urine pH Ur Specific [place] Urine Protein Urine Glucose (UA) Urine Ketones Urine Occult Blood Urine Nitrite Urine Bilirubin Urine Urobilinogen Ur Leukocyte Esterase Urine RBC Ur Epithelial Cells Urine Bacteria Urine Mucus Ur Random Microalbumin Digoxin < 0.40 L 03/24/16 03/24/16 03/24/16 11:50 13:20 14:30 WBC RBC Hgb Hct MCV MCH MCHC RDW Plt Count MPV Neut % (Auto) Lymph % (Auto) [place] % (Auto) Eos % (Auto) Baso % (Auto) Absolute Neuts (auto) Absolute Lymphs (auto) Seg Neuts % (Manual) Band Neutrophils % Lymphocytes % (Manual) Monocytes % (Manual) Absolute Neutrophils Absolute Lymphocytes Toxic Granulation Platelet Estimate RBC Morphology PT INR APTT D-Dimer Quant (PE/DVT) Puncture Site Right radial pH 7.430 pCO2 43.0 pO2 51.0 L HCO3 28.5 H Total CO2 29.8 H Base Excess 3.7 H Vent Mode FiO2 % 2 lpm nc Specimen Drawn By Belja Sodium Potassium Chloride Carbon Dioxide Anion Gap BUN Creatinine Estimated GFR (MDRD) Glucose POC Capillary Glucose Hemoglobin A1c Calculated Osmolality Lactic Acid Calcium Corrected Calcium Magnesium Total Bilirubin AST ALT Alkaline Phosphatase Creatine Kinase Troponin I 0.05 Cqh-H-Zbbxgqmdxpt Pept Total Protein Albumin Urine Color Yellow Urine Clarity Clear Urine pH 8.0 Ur Specific [place] 1.005 Urine Protein Neg Urine Glucose (UA) Neg Urine Ketones Neg Urine Occult Blood Neg Urine Nitrite Neg Urine Bilirubin Neg Urine Urobilinogen <2.0 Ur Leukocyte Esterase Neg Urine RBC 0-2 Ur Epithelial Cells 1+ Urine Bacteria 3+ H Urine Mucus Occ Ur Random Microalbumin Digoxin 03/24/16 03/24/16 03/24/16 15:35 16:28 17:35 WBC RBC Hgb Hct MCV MCH MCHC RDW Plt Count MPV Neut % (Auto) Lymph % (Auto) [place] % (Auto) Eos % (Auto) Baso % (Auto) Absolute Neuts (auto) Absolute Lymphs (auto) Seg Neuts % (Manual) Band Neutrophils % Lymphocytes % (Manual) Monocytes % (Manual) Absolute Neutrophils Absolute Lymphocytes Toxic Granulation Platelet Estimate RBC Morphology PT INR APTT D-Dimer Quant (PE/DVT) Puncture Site pH pCO2 pO2 HCO3 Total CO2 Base Excess Vent Mode FiO2 % Specimen Drawn By Sodium Potassium Chloride Carbon Dioxide Anion Gap BUN Creatinine Estimated GFR (MDRD) Glucose POC Capillary Glucose 391 H Hemoglobin A1c Calculated Osmolality Lactic Acid Calcium Corrected Calcium Magnesium Total Bilirubin AST ALT Alkaline Phosphatase Creatine Kinase Troponin I 0.03 Dvk-P-Ftficwudeei Pept Total Protein Albumin Urine Color Urine Clarity Urine pH Ur Specific [place] Urine Protein Urine Glucose (UA) Urine Ketones Urine Occult Blood Urine Nitrite Urine Bilirubin Urine Urobilinogen Ur Leukocyte Esterase Urine RBC Ur Epithelial Cells Urine Bacteria Urine Mucus Ur Random Microalbumin 3.2 Digoxin 03/24/16 03/25/16 03/25/16 20:25 03:10 03:10 WBC 7.6 RBC 3.48 L Hgb 10.8 L Hct 32.4 L MCV 93 MCH 31.0 MCHC 33.2 RDW 14.8 H Plt Count 350 MPV 7.1 L Neut % (Auto) Lymph % (Auto) [place] % (Auto) Eos % (Auto) Baso % (Auto) Absolute Neuts (auto) Absolute Lymphs (auto) Seg Neuts % (Manual) Band Neutrophils % Lymphocytes % (Manual) Monocytes % (Manual) Absolute Neutrophils Absolute Lymphocytes Toxic Granulation Platelet Estimate RBC Morphology PT INR APTT D-Dimer Quant (PE/DVT) Puncture Site pH pCO2 pO2 HCO3 Total CO2 Base Excess Vent Mode FiO2 % Specimen Drawn By Sodium 137 Potassium 4.5 Chloride 100 Carbon Dioxide 28 Anion Gap 14 BUN 16 Creatinine 0.70 Estimated GFR (MDRD) > 60 Glucose 211 H POC Capillary Glucose 325 H Hemoglobin A1c Calculated Osmolality 271 Lactic Acid Calcium 8.4 Corrected Calcium Magnesium Total Bilirubin AST ALT Alkaline Phosphatase Creatine Kinase Troponin I Rrw-I-Gfxblgyckzh Pept Total Protein Albumin Urine Color Urine Clarity Urine pH Ur Specific [place] Urine Protein Urine Glucose (UA) Urine Ketones Urine Occult Blood Urine Nitrite Urine Bilirubin Urine Urobilinogen Ur Leukocyte Esterase Urine RBC Ur Epithelial Cells Urine Bacteria Urine Mucus Ur Random Microalbumin Digoxin 03/25/16 03/25/16 03/25/16 03:10 05:28 11:40 WBC RBC Hgb Hct MCV MCH MCHC RDW Plt Count MPV Neut % (Auto) Lymph % (Auto) [place] % (Auto) Eos % (Auto) Baso % (Auto) Absolute Neuts (auto) Absolute Lymphs (auto) Seg Neuts % (Manual) Band Neutrophils % Lymphocytes % (Manual) Monocytes % (Manual) Absolute Neutrophils Absolute Lymphocytes Toxic Granulation Platelet Estimate RBC Morphology PT 27.4 H INR 2.6 APTT D-Dimer Quant (PE/DVT) Puncture Site pH pCO2 pO2 HCO3 Total CO2 Base Excess Vent Mode FiO2 % Specimen Drawn By Sodium Potassium Chloride Carbon Dioxide Anion Gap BUN Creatinine Estimated GFR (MDRD) Glucose POC Capillary Glucose 230 H 278 H Hemoglobin A1c Calculated Osmolality Lactic Acid Calcium Corrected Calcium Magnesium Total Bilirubin AST ALT Alkaline Phosphatase Creatine Kinase Troponin I Ifw-E-Jdiulrkfemj Pept Total Protein Albumin Urine Color Urine Clarity Urine pH Ur Specific [place] Urine Protein Urine Glucose (UA) Urine Ketones Urine Occult Blood Urine Nitrite Urine Bilirubin Urine Urobilinogen Ur Leukocyte Esterase Urine RBC Ur Epithelial Cells Urine Bacteria Urine Mucus Ur Random Microalbumin Digoxin 03/25/16 03/25/16 03/26/16 15:47 21:34 05:29 WBC RBC Hgb Hct MCV MCH MCHC RDW Plt Count MPV Neut % (Auto) Lymph % (Auto) [place] % (Auto) Eos % (Auto) Baso % (Auto) Absolute Neuts (auto) Absolute Lymphs (auto) Seg Neuts % (Manual) Band Neutrophils % Lymphocytes % (Manual) Monocytes % (Manual) Absolute Neutrophils Absolute Lymphocytes Toxic Granulation Platelet Estimate RBC Morphology PT INR APTT D-Dimer Quant (PE/DVT) Puncture Site pH pCO2 pO2 HCO3 Total CO2 Base Excess Vent Mode FiO2 % Specimen Drawn By Sodium Potassium Chloride Carbon Dioxide Anion Gap BUN Creatinine Estimated GFR (MDRD) Glucose POC Capillary Glucose 209 H 125 H 172 H Hemoglobin A1c Calculated Osmolality Lactic Acid Calcium Corrected Calcium Magnesium Total Bilirubin AST ALT Alkaline Phosphatase Creatine Kinase Troponin I Myv-N-Fiahoqygzle Pept Total Protein Albumin Urine Color Urine Clarity Urine pH Ur Specific [place] Urine Protein Urine Glucose (UA) Urine Ketones Urine Occult Blood Urine Nitrite Urine Bilirubin Urine Urobilinogen Ur Leukocyte Esterase Urine RBC Ur Epithelial Cells Urine Bacteria Urine Mucus Ur Random Microalbumin Digoxin 03/26/16 03/26/16 03/26/16 05:30 05:30 05:30 WBC 15.3 H RBC 3.32 L Hgb 10.1 L Hct 30.6 L MCV 92 MCH 30.5 MCHC 33.1 RDW 14.8 H Plt Count 379 MPV 7.1 L Neut % (Auto) Cancelled Lymph % (Auto) Cancelled [place] % (Auto) Cancelled Eos % (Auto) Cancelled Baso % (Auto) Cancelled Absolute Neuts (auto) Cancelled Absolute Lymphs (auto) Cancelled Seg Neuts % (Manual) 91 H Band Neutrophils % 6 H Lymphocytes % (Manual) 2 L Monocytes % (Manual) 1 Absolute Neutrophils 14.84 H Absolute Lymphocytes 0.31 L Toxic Granulation 1+ Platelet Estimate Norm RBC Morphology Norm PT 31.3 H INR 3.0 APTT D-Dimer Quant (PE/DVT) Puncture Site pH pCO2 pO2 HCO3 Total CO2 Base Excess Vent Mode FiO2 % Specimen Drawn By Sodium 138 Potassium 3.4 L Chloride 96 L Carbon Dioxide 32 Anion Gap 13 BUN 19 H Creatinine 0.70 Estimated GFR (MDRD) > 60 Glucose 160 H POC Capillary Glucose Hemoglobin A1c Calculated Osmolality 271 Lactic Acid Calcium 8.1 L Corrected Calcium Magnesium Total Bilirubin AST ALT Alkaline Phosphatase Creatine Kinase Troponin I Rwh-R-Gvmujzbkbsu Pept Total Protein Albumin Urine Color Urine Clarity Urine pH Ur Specific [place] Urine Protein Urine Glucose (UA) Urine Ketones Urine Occult Blood Urine Nitrite Urine Bilirubin Urine Urobilinogen Ur Leukocyte Esterase Urine RBC Ur Epithelial Cells Urine Bacteria Urine Mucus Ur Random Microalbumin Digoxin 03/26/16 03/26/16 03/26/16 11:23 16:05 19:35 WBC RBC Hgb Hct MCV MCH MCHC RDW Plt Count MPV Neut % (Auto) Lymph % (Auto) [place] % (Auto) Eos % (Auto) Baso % (Auto) Absolute Neuts (auto) Absolute Lymphs (auto) Seg Neuts % (Manual) Band Neutrophils % Lymphocytes % (Manual) Monocytes % (Manual) Absolute Neutrophils Absolute Lymphocytes Toxic Granulation Platelet Estimate RBC Morphology PT INR APTT D-Dimer Quant (PE/DVT) Puncture Site pH pCO2 pO2 HCO3 Total CO2 Base Excess Vent Mode FiO2 % Specimen Drawn By Sodium Potassium Chloride Carbon Dioxide Anion Gap BUN Creatinine Estimated GFR (MDRD) Glucose POC Capillary Glucose 228 H 324 H 275 H Hemoglobin A1c Calculated Osmolality Lactic Acid Calcium Corrected Calcium Magnesium Total Bilirubin AST ALT Alkaline Phosphatase Creatine Kinase Troponin I Gcw-I-Rbfwvqqmvdx Pept Total Protein Albumin Urine Color Urine Clarity Urine pH Ur Specific [place] Urine Protein Urine Glucose (UA) Urine Ketones Urine Occult Blood Urine Nitrite Urine Bilirubin Urine Urobilinogen Ur Leukocyte Esterase Urine RBC Ur Epithelial Cells Urine Bacteria Urine Mucus Ur Random Microalbumin Digoxin 03/27/16 03/27/16 03/27/16 04:45 04:45 04:45 WBC 17.1 H RBC 3.51 L Hgb 10.7 L Hct 32.1 L MCV 92 MCH 30.3 MCHC 33.2 RDW 15.1 H Plt Count 375 MPV 7.4 Neut % (Auto) Cancelled Lymph % (Auto) Cancelled [place] % (Auto) Cancelled Eos % (Auto) Cancelled Baso % (Auto) Cancelled Absolute Neuts (auto) Cancelled Absolute Lymphs (auto) Cancelled Seg Neuts % (Manual) 80 H Band Neutrophils % 9 H Lymphocytes % (Manual) 7 L Monocytes % (Manual) 4 Absolute Neutrophils 15.22 H Absolute Lymphocytes 1.20 Toxic Granulation 1+ Platelet Estimate Norm RBC Morphology 1+ poik PT 42.8 H INR 4.1 APTT D-Dimer Quant (PE/DVT) Puncture Site pH pCO2 pO2 HCO3 Total CO2 Base Excess Vent Mode FiO2 % Specimen Drawn By Sodium 135 L Potassium 3.6 Chloride 92 L Carbon Dioxide 37 H Anion Gap 10 BUN 21 H Creatinine 0.70 Estimated GFR (MDRD) > 60 Glucose 144 H POC Capillary Glucose Hemoglobin A1c Calculated Osmolality 266 L Lactic Acid Calcium 8.1 L Corrected Calcium Magnesium Total Bilirubin AST ALT Alkaline Phosphatase Creatine Kinase Troponin I Bjc-Q-Ruywxuehcjy Pept Total Protein Albumin Urine Color Urine Clarity Urine pH Ur Specific [place] Urine Protein Urine Glucose (UA) Urine Ketones Urine Occult Blood Urine Nitrite Urine Bilirubin Urine Urobilinogen Ur Leukocyte Esterase Urine RBC Ur Epithelial Cells Urine Bacteria Urine Mucus Ur Random Microalbumin Digoxin 03/27/16 03/27/16 03/27/16 06:09 11:45 16:36 WBC RBC Hgb Hct MCV MCH MCHC RDW Plt Count MPV Neut % (Auto) Lymph % (Auto) [place] % (Auto) Eos % (Auto) Baso % (Auto) Absolute Neuts (auto) Absolute Lymphs (auto) Seg Neuts % (Manual) Band Neutrophils % Lymphocytes % (Manual) Monocytes % (Manual) Absolute Neutrophils Absolute Lymphocytes Toxic Granulation Platelet Estimate RBC Morphology PT INR APTT D-Dimer Quant (PE/DVT) Puncture Site pH pCO2 pO2 HCO3 Total CO2 Base Excess Vent Mode FiO2 % Specimen Drawn By Sodium Potassium Chloride Carbon Dioxide Anion Gap BUN Creatinine Estimated GFR (MDRD) Glucose POC Capillary Glucose 197 H 166 H 220 H Hemoglobin A1c Calculated Osmolality Lactic Acid Calcium Corrected Calcium Magnesium Total Bilirubin AST ALT Alkaline Phosphatase Creatine Kinase Troponin I Siz-R-Mkufklfcruw Pept Total Protein Albumin Urine Color Urine Clarity Urine pH Ur Specific [place] Urine Protein Urine Glucose (UA) Urine Ketones Urine Occult Blood Urine Nitrite Urine Bilirubin Urine Urobilinogen Ur Leukocyte Esterase Urine RBC Ur Epithelial Cells Urine Bacteria Urine Mucus Ur Random Microalbumin Digoxin 03/27/16 03/28/16 03/28/16 20:54 04:50 05:45 WBC RBC Hgb Hct MCV MCH MCHC RDW Plt Count MPV Neut % (Auto) Lymph % (Auto) [place] % (Auto) Eos % (Auto) Baso % (Auto) Absolute Neuts (auto) Absolute Lymphs (auto) Seg Neuts % (Manual) Band Neutrophils % Lymphocytes % (Manual) Monocytes % (Manual) Absolute Neutrophils Absolute Lymphocytes Toxic Granulation Platelet Estimate RBC Morphology PT 39.6 H INR 3.8 APTT D-Dimer Quant (PE/DVT) Puncture Site pH pCO2 pO2 HCO3 Total CO2 Base Excess Vent Mode FiO2 % Specimen Drawn By Sodium Potassium Chloride Carbon Dioxide Anion Gap BUN Creatinine Estimated GFR (MDRD) Glucose POC Capillary Glucose 137 H 246 H Hemoglobin A1c Calculated Osmolality Lactic Acid Calcium Corrected Calcium Magnesium Total Bilirubin AST ALT Alkaline Phosphatase Creatine Kinase Troponin I Dhc-L-Ynoqbgnjvfw Pept Total Protein Albumin Urine Color Urine Clarity Urine pH Ur Specific [place] Urine Protein Urine Glucose (UA) Urine Ketones Urine Occult Blood Urine Nitrite Urine Bilirubin Urine Urobilinogen Ur Leukocyte Esterase Urine RBC Ur Epithelial Cells Urine Bacteria Urine Mucus Ur Random Microalbumin Digoxin 03/28/16 03/28/16 03/28/16 11:30 15:31 19:37 WBC RBC Hgb Hct MCV MCH MCHC RDW Plt Count MPV Neut % (Auto) Lymph % (Auto) [place] % (Auto) Eos % (Auto) Baso % (Auto) Absolute Neuts (auto) Absolute Lymphs (auto) Seg Neuts % (Manual) Band Neutrophils % Lymphocytes % (Manual) Monocytes % (Manual) Absolute Neutrophils Absolute Lymphocytes Toxic Granulation Platelet Estimate RBC Morphology PT INR APTT D-Dimer Quant (PE/DVT) Puncture Site pH pCO2 pO2 HCO3 Total CO2 Base Excess Vent Mode FiO2 % Specimen Drawn By Sodium Potassium Chloride Carbon Dioxide Anion Gap BUN Creatinine Estimated GFR (MDRD) Glucose POC Capillary Glucose 383 H 293 H 267 H Hemoglobin A1c Calculated Osmolality Lactic Acid Calcium Corrected Calcium Magnesium Total Bilirubin AST ALT Alkaline Phosphatase Creatine Kinase Troponin I Dxh-J-Ritpeppmvud Pept Total Protein Albumin Urine Color Urine Clarity Urine pH Ur Specific [place] Urine Protein Urine Glucose (UA) Urine Ketones Urine Occult Blood Urine Nitrite Urine Bilirubin Urine Urobilinogen Ur Leukocyte Esterase Urine RBC Ur Epithelial Cells Urine Bacteria Urine Mucus Ur Random Microalbumin Digoxin 03/29/16 03/29/16 03/29/16 02:20 05:12 11:01 WBC RBC Hgb Hct MCV MCH MCHC RDW Plt Count MPV Neut % (Auto) Lymph % (Auto) [place] % (Auto) Eos % (Auto) Baso % (Auto) Absolute Neuts (auto) Absolute Lymphs (auto) Seg Neuts % (Manual) Band Neutrophils % Lymphocytes % (Manual) Monocytes % (Manual) Absolute Neutrophils Absolute Lymphocytes Toxic Granulation Platelet Estimate RBC Morphology PT 26.1 H INR 2.5 APTT D-Dimer Quant (PE/DVT) Puncture Site pH pCO2 pO2 HCO3 Total CO2 Base Excess Vent Mode FiO2 % Specimen Drawn By Sodium Potassium Chloride Carbon Dioxide Anion Gap BUN Creatinine Estimated GFR (MDRD) Glucose POC Capillary Glucose 286 H 363 H Hemoglobin A1c Calculated Osmolality Lactic Acid Calcium Corrected Calcium Magnesium Total Bilirubin AST ALT Alkaline Phosphatase Creatine Kinase Troponin I Gmy-N-Xcmoucphzvq Pept Total Protein Albumin Urine Color Urine Clarity Urine pH Ur Specific [place] Urine Protein Urine Glucose (UA) Urine Ketones Urine Occult Blood Urine Nitrite Urine Bilirubin Urine Urobilinogen Ur Leukocyte Esterase Urine RBC Ur Epithelial Cells Urine Bacteria Urine Mucus Ur Random Microalbumin Digoxin 03/29/16 03/29/16 03/29/16 15:55 21:10 23:26 WBC RBC Hgb Hct MCV MCH MCHC RDW Plt Count MPV Neut % (Auto) Lymph % (Auto) [place] % (Auto) Eos % (Auto) Baso % (Auto) Absolute Neuts (auto) Absolute Lymphs (auto) Seg Neuts % (Manual) Band Neutrophils % Lymphocytes % (Manual) Monocytes % (Manual) Absolute Neutrophils Absolute Lymphocytes Toxic Granulation Platelet Estimate RBC Morphology PT INR APTT D-Dimer Quant (PE/DVT) Puncture Site pH pCO2 pO2 HCO3 Total CO2 Base Excess Vent Mode FiO2 % Specimen Drawn By Sodium Potassium Chloride Carbon Dioxide Anion Gap BUN Creatinine Estimated GFR (MDRD) Glucose POC Capillary Glucose 330 H 318 H Hemoglobin A1c Calculated Osmolality Lactic Acid Calcium Corrected Calcium Magnesium Total Bilirubin AST ALT Alkaline Phosphatase Creatine Kinase 23 L Troponin I 0.03 Ezj-H-Cuzotofdwjh Pept Total Protein Albumin Urine Color Urine Clarity Urine pH Ur Specific [place] Urine Protein Urine Glucose (UA) Urine Ketones Urine Occult Blood Urine Nitrite Urine Bilirubin Urine Urobilinogen Ur Leukocyte Esterase Urine RBC Ur Epithelial Cells Urine Bacteria Urine Mucus Ur Random Microalbumin Digoxin 03/29/16 23:26 WBC RBC Hgb Hct MCV MCH MCHC RDW Plt Count MPV Neut % (Auto) Lymph % (Auto) [place] % (Auto) Eos % (Auto) Baso % (Auto) Absolute Neuts (auto) Absolute Lymphs (auto) Seg Neuts % (Manual) Band Neutrophils % Lymphocytes % (Manual) Monocytes % (Manual) Absolute Neutrophils Absolute Lymphocytes Toxic Granulation Platelet Estimate RBC Morphology PT INR APTT D-Dimer Quant (PE/DVT) 852 H Puncture Site pH pCO2 pO2 HCO3 Total CO2 Base Excess Vent Mode FiO2 % Specimen Drawn By Sodium Potassium Chloride Carbon Dioxide Anion Gap BUN Creatinine Estimated GFR (MDRD) Glucose POC Capillary Glucose Hemoglobin A1c Calculated Osmolality Lactic Acid Calcium Corrected Calcium Magnesium Total Bilirubin AST ALT Alkaline Phosphatase Creatine Kinase Troponin I Jal-F-Zngkhdakuek Pept Total Protein Albumin Urine Color Urine Clarity Urine pH Ur Specific [place] Urine Protein Urine Glucose (UA) Urine Ketones Urine Occult Blood Urine Nitrite Urine Bilirubin Urine Urobilinogen Ur Leukocyte Esterase Urine RBC Ur Epithelial Cells Urine Bacteria Urine Mucus Ur Random Microalbumin Digoxin Chest x-ray, viewed personally: EXAM: PORTABLE CHEST 1 VIEW COMPARISON: Chest radiograph 03/29/2016 FINDINGS: Right upper extremity PICC line tip projects over the superior vena cava. Monitoring leads overlie the patient. Stable cardiac and mediastinal contours. Interval worsening diffuse bilateral mid lower lung heterogeneous pulmonary opacities. Biapical emphysematous change. Left upper lung heterogeneous opacity largely obscured due to overlying monitoring lead. Possible small left pleural effusion. IMPRESSION: Worsening bilateral mid and lower lung interstitial airspace opacities which may represent atelectasis, edema and/or infection. A portion of these findings may represent chronic underlying lung disease. Focal opacity within the left upper lung may be related to acute process. Underlying pulmonary malignancy is not excluded. Recommend correlation with dedicated chest CT after resolution of acute process. - Assessment (1) Acute respiratory failure with hypoxia Acute J96.01 - ACUTE RESPIRATORY FAILURE WITH HYPOXIA (2) Chest pain Acute R07.9 - CHEST PAIN, UNSPECIFIED Qualifiers: Chest pain type: chest pain on breathing Qualified Code(s): R07.1 - Chest pain on breathing (3) Tremor of left hand Acute R25.1 - TREMOR, UNSPECIFIED (4) Tachycardia Acute R00.0 - TACHYCARDIA, UNSPECIFIED - Plan (1) Acute respiratory failure with hypoxia Acute J96.01 - ACUTE RESPIRATORY FAILURE WITH HYPOXIA Patient has dyspnea and is not improving. She has had worsening respiratory distress this evening. Had acute respiratory failure on admission with ABG showing PO2 of 51%. O2 sats peripherally are 85% despite treatment on VentiMask. Plan: Stat CXR. Lasix 20 mg IV x 1 now. Increase patient to BiPAP 40% and increase as needed. Probably needs BiPAP at night even when weaned Monitor oxygen saturation levels and keep O2 sats greater than 92%. Ordered stat CTA of chest; unfortunately, patient is too ill to obtain CT -- cannot lie flat at this time. Place CTA chest on hold until patient able to tolerate. (2) Chest pain Acute R07.9 - CHEST PAIN, UNSPECIFIED Qualifiers: Chest pain type: chest pain on breathing Qualified Code(s): R07.1 - Chest pain on breathing Comment/Plan: HISTORY: Apparently known disease family states they have wanted to perform interventions but patient has refused this repeatedly. UPDATE 03/29/16: Most likely due to her worsening respiratory function, but could represent cardiac ischemia. EKG ordered. Cardiac enzymes x3. Telemetry. No aspirin due to allergy. Continue warfarin. Treat respiratory failure. Generally has hypotension, but has low dose SAI-inhibitor. Does not appear to tolerate beta blockers. Continue Ranexa. PRN Dilaudid. Anticoagulation: INR is below 2, consider q 12 Lovenox until INR is above 2. (3) Tremor of left hand Acute R25.1 - TREMOR, UNSPECIFIED Essentially normal neurologic exam other than generalized weakness. The tremor stops when patient is distracted, when she squeezes her hand, or is asked to perform a task. Suspect the tremor is more related to anxiety, and could be somewhat of a conversion disorder. Plan: Neuro checks. Treat anxiety. Further treatment depending on course. (4) Tachycardia Acute R00.0 - TACHYCARDIA, UNSPECIFIED Plan: Telemetry. Consider medication if worsens. In summary, this patient is acutely and critically ill. The patient requires treatment of vital organ failure and measures to prevent further life- threatening deterioration of condition. Discussed case with family and nurse. Discussed case with respiratory therapist. I have spent 60 min in the critical care of this patient. Case Care Discussed with: Patient, Family, Nursing Staff, Respiratory Therapy Education/Counseling Given To: Patient Education/Counseling Given Regarding: Diagnosis, Treatment Total Time: 60 min Critical Care: Yes Code: 291
[2016-03-29] MEDS ORDERED: FUROSEMIDE 20 MG/2 ML VIAL IV ONE (23:30)
[2016-03-30] MEDS: OXYCODONE HCL 5 MG TABLET PO PRN (01:22)
[2016-03-30] MEDS: Albuterol/Ipratropium Neb 3 ML NEB NEB SCH ×4 (02:33→19:38)
[2016-03-30] MEDS ORDERED: Pharmacy Review for Metformin - IV Contrast Given SCH (03:00)
[2016-03-30] MEDS: IMIPENEM CILASTATIN 250 MG in D5W 100 ML IV SCH ×3 (03:59→21:01)
[2016-03-30] MEDS: ISOSORBIDE MONONITRATE 30 MG TAB PO SCH (05:13)
[2016-03-30] MEDS: GABAPENTIN 300 MG CAP PO SCH ×3 (05:13→21:03)
[2016-03-30] MEDS: PANTOPRAZOLE 40 MG TAB PO SCH (05:14)
[2016-03-30] MEDS: LEVOTHYROXINE 125 MCG (0.125 MG) TAB PO SCH (05:14)
[2016-03-30] MEDS: MIDODRINE HCL 5 MG TAB PO SCH ×3 (05:14→21:03)
[2016-03-30 05:34] LABS: MPV 7.5 fL (7.4-10.4)
[2016-03-30 05:36] LABS: BLOOD UREA NITROGEN 36 MG/DL (7-17); CALCIUM 8.2 MG/DL (8.4-10.2); CALCULATED OSMOLALITY 275 MOs/Kg (270-290); CHLORIDE 88 mEq/L (98-107); GLUCOSE 295 mg/dL (70-99); SODIUM LEVEL 133 mEq/L (137-146)
[2016-03-30] MEDS ORDERED: Enoxaparin 1 mg per kg per dose SQ SCH (06:00)
[2016-03-30] MEDS: POTASSIUM CHLORIDE 20 MEQ TAB PO SCH ×2 (06:04→09:12)
[2016-03-30] MEDS: SUCRALFATE 1 GM TAB PO SCH ×4 (06:04→21:07)
[2016-03-30] MEDS: ENOXAPARIN 60 MG/0.6 ML PFS SQ SCH ×2 (06:04→17:22)
[2016-03-30] MEDS: REGULAR INSULIN 100 UNITS/ML - 3 ML VIAL SQ SCH ×4 (06:05→21:06)
[2016-03-30 07:41] LABS: SEG NEUTROPHIL 81 % (45-76)
[2016-03-30] MEDS: MAGIC MOUTHWASH 180 ML ORAL SUSP PO SCH ×4 (09:00→21:03)
[2016-03-30] MEDS: NYSTATIN ORAL SUSP 5 ML PO SCH ×4 (09:01→21:03)
[2016-03-30] MEDS: LISINOPRIL 2.5 MG TAB PO SCH (09:12)
[2016-03-30] MEDS: RANOLAZINE 500 MG EXT RELEASE TAB PO SCH ×3 (09:12→21:02)
[2016-03-30] MEDS: FUROSEMIDE 40 MG/4 ML VIAL IV SCH ×2 (09:52→21:03)
[2016-03-30] MEDS: METHYLPREDNISOLONE 40 MG/1 ML VIAL IV SCH ×2 (09:52→21:03)
[2016-03-30] MEDS: INSULIN DETEMIR 100 UNITS/ML PEN SQ SCH (09:53)
[2016-03-30] MEDS ORDERED: KCL 20 mEq/100 ml Premix Run 20 MEQ/100 ML RTU IV ONE (10:00)
--- NOTE | 2016-03-30 10:56 | GENMEDPROG ---
Chief Complaint: Had extensive discussion with family patient has developed acute respiratory failure overnight. She is more short of breath and BiPAP was used. Notes Reviewed: Yes: Events from last night noted and discussed with Clinical Staff Current Medication List: Reviewed Currently: Reports: Cough, LYNCH, SOB, Sputum. Denies: Wheezing, Nausea and Vomiting, Abdominal Pain, Chest Pain DVT Prophylaxis: Yes (INR greater than 3 will have to hold the Coumadin) - Physical Examination Vital Signs and I&O: Last Vital Signs Temp 97.1 F L 03/30/16 08:00 Pulse 92 03/30/16 09:07 Resp 15 03/30/16 08:50 BP 121/60 03/30/16 08:00 Pulse Ox 93 03/30/16 08:50 Oxygen Pulse Oxygen Saturation 93 O2 Device BiPAP Oxygen Flow Rate 4 Fraction of Inspired Oxygen ( 50 FIO2) Intake & Output 03/27/16 03/28/16 03/29/16 03/30/16 23:59 23:59 23:59 23:59 Intake Total 960 1469 1370 Output Total 2350 3475 1450 1150 Balance -1390 -2006 -80 -1150 Patient's weight 59.012 kg 55.934 kg 55.474 kg 55.973 kg General: Alert, Oriented x3, Cooperative, Moderate distress, Well nourished. negative: Well appearing (Acutely ill-appearing) HEENT: Normal, PERRLA, EOMI, Anicteric Sclera, Other (White tongue coating) Neck: Non-tender, Full range of motion, Normal Trachea alignment, Normal inspection. negative: JVD Lymphatics: Normal (no adenopathy). negative: Adenopathy Respiratory: Rales, Rhonchi, Tachypnea, Wheezes Cardiovascular: Regular rate and rhythm, Normal S1, No Gallops,Rubs/Murmurs, Normal S2 GI: Normal bowel sounds, Soft, Non tender, No hepatospenomegaly, No masses Extremities/Musculoskeletal: Normal pulses. negative: Tenderness, Swelling, Edema Skin: Warm,Dry and Intact, No rashes Neurological: Strength at 5/5 X4 ext, Cranial nerves 3-12 NL Psych/Mental Status: Appropriate, Normal Affect, Cooperative Lab/DI/Studies Reviewed: 03/30/16 05:12 03/30/16 05:12 Laboratory Results - last 24 hr 03/29/16 03/29/16 03/29/16 11:01 15:55 21:10 WBC RBC Hgb Hct MCV MCH MCHC RDW Plt Count MPV Neut % (Auto) Lymph % (Auto) [place] % (Auto) Eos % (Auto) Baso % (Auto) Absolute Neuts (auto) Absolute Lymphs (auto) Seg Neuts % (Manual) Band Neutrophils % Lymphocytes % (Manual) Monocytes % (Manual) Absolute Neutrophils Absolute Lymphocytes Platelet Estimate RBC Morphology PT INR D-Dimer Quant (PE/DVT) Sodium Potassium Chloride Carbon Dioxide Anion Gap BUN Creatinine Estimated GFR (MDRD) Glucose POC Capillary Glucose 363 H 330 H 318 H Calculated Osmolality Calcium Magnesium Creatine Kinase Troponin I Gvo-V-Rqoybuwnfcl Pept 03/29/16 03/29/16 03/30/16 23:26 23:26 02:22 WBC RBC Hgb Hct MCV MCH MCHC RDW Plt Count MPV Neut % (Auto) Lymph % (Auto) [place] % (Auto) Eos % (Auto) Baso % (Auto) Absolute Neuts (auto) Absolute Lymphs (auto) Seg Neuts % (Manual) Band Neutrophils % Lymphocytes % (Manual) Monocytes % (Manual) Absolute Neutrophils Absolute Lymphocytes Platelet Estimate RBC Morphology PT INR D-Dimer Quant (PE/DVT) 852 H Sodium Potassium Chloride Carbon Dioxide Anion Gap BUN Creatinine Estimated GFR (MDRD) Glucose POC Capillary Glucose Calculated Osmolality Calcium Magnesium Creatine Kinase 23 L Troponin I 0.03 0.03 Psi-G-Etabpkimcsg Pept 03/30/16 03/30/16 03/30/16 05:12 05:12 05:12 WBC 18.4 H RBC 3.77 L Hgb 11.3 L Hct 34.3 L MCV 91 MCH 29.9 MCHC 32.8 L RDW 15.4 H Plt Count 323 MPV 7.5 Neut % (Auto) Cancelled Lymph % (Auto) Cancelled [place] % (Auto) Cancelled Eos % (Auto) Cancelled Baso % (Auto) Cancelled Absolute Neuts (auto) Cancelled Absolute Lymphs (auto) Cancelled Seg Neuts % (Manual) 81 H Band Neutrophils % 11 H Lymphocytes % (Manual) 5 L Monocytes % (Manual) 3 Absolute Neutrophils 16.93 H Absolute Lymphocytes 0.92 Platelet Estimate Norm RBC Morphology Reviewed this admiss PT 20.8 H INR 2.0 D-Dimer Quant (PE/DVT) Sodium 133 L Potassium 3.3 L Chloride 88 L Carbon Dioxide 37 H Anion Gap 11 BUN 36 H Creatinine 0.90 Estimated GFR (MDRD) 60 Glucose 295 H POC Capillary Glucose Calculated Osmolality 275 Calcium 8.2 L Magnesium Creatine Kinase Troponin I Daz-J-Rpcqkqzwewp Pept 1500 03/30/16 03/30/16 03/30/16 05:12 05:12 05:33 WBC RBC Hgb Hct MCV MCH MCHC RDW Plt Count MPV Neut % (Auto) Lymph % (Auto) [place] % (Auto) Eos % (Auto) Baso % (Auto) Absolute Neuts (auto) Absolute Lymphs (auto) Seg Neuts % (Manual) Band Neutrophils % Lymphocytes % (Manual) Monocytes % (Manual) Absolute Neutrophils Absolute Lymphocytes Platelet Estimate RBC Morphology PT INR D-Dimer Quant (PE/DVT) Sodium Potassium Chloride Carbon Dioxide Anion Gap BUN Creatinine Estimated GFR (MDRD) Glucose POC Capillary Glucose 332 H Calculated Osmolality Calcium Magnesium 1.80 Creatine Kinase Troponin I 0.03 Drc-U-Tjcdeqvlqyo Pept - Assessment (1) Acute respiratory failure Acute J96.00 - ACUTE RESPIRATORY FAILURE, UNSP W HYPOXIA OR HYPERCAPNIA Qualifiers: Respiratory failure complication: hypoxia Qualified Code(s): J96.01 - Acute respiratory failure with hypoxia Comment/Plan: Extremely short of breath and hypoxic overnight and remains on BiPAP this morning. She is certainly critically ill in danger of dying and unfortunately is getting worse. I had a long discussion with her son and he indicated that she had commented about going home and he mentioned that she is referring to and not her home. I advise we might have to get hospice involved she does not turn around soon. (2) HCAP (healthcare-associated pneumonia) Acute J18.9 - PNEUMONIA, UNSPECIFIED ORGANISM Comment/Plan: Getting Primaxin Levaquin and probiotic for her pneumonia. Chest x-ray shows persistent right upper lobe infiltrate had overnight she developed acute respiratory failure and distress which resulted in her getting started on BiPAP. Family was concerned and I discussed with them the fact that she is getting worse and we may need to be talking about getting hospice involved with her care. Her son is aware of her deteriorating status and agrees that we may need hospice. Consideration for home hospice. (3) Bacteria in urine Acute R82.71 - BACTERIURIA Comment/Plan: VRE in urine is sensitive to ampicillin. Since she has pneumonia she is getting Primaxin for this and the UTI as she is allergic to penicillin. (4) COPD (chronic obstructive pulmonary disease) Acute J44.9 - CHRONIC OBSTRUCTIVE PULMONARY DISEASE, UNSPECIFIED Qualifiers: COPD type: COPD with acute exacerbation Qualified Code(s): J44.1 - Chronic obstructive pulmonary disease with (acute) exacerbation Comment/Plan: Still has some mild wheezing. Continue to wean steroids. Increase activity as tolerated. Less short breath. (5) CHF (congestive heart failure) Acute I50.9 - HEART FAILURE, UNSPECIFIED Qualifiers: Congestive heart failure type: unspecified congestive heart failure type Congestive heart failure chronicity: unspecified congestive heart failure chronicity Qualified Code(s): I50.9 - Heart failure, unspecified Comment/Plan: Patient is lost 7 L of fluid since admission equal to 7 kg of weight and less short of breath. Will decrease the IV Lasix and recheck her BNP. Chest x-ray shows right upper lobe infiltrate. (6) Diabetes mellitus Acute E11.9 - TYPE 2 DIABETES MELLITUS WITHOUT COMPLICATIONS Qualifiers: Diabetes mellitus type: type 2 Diabetes mellitus complication status: without complication Diabetes mellitus mud logger insulin use: with fdc use Qualified Code(s): E11.9 - Type 2 diabetes mellitus without complications ; Z79.4 - group home (current) use of insulin Comment/Plan: Continue home medications. Accu-Cheks and sliding scale insulin. Steroids will likely exacerbate. Monitor glucoses. (7) Ambulatory dysfunction Acute R26.2 - DIFFICULTY IN WALKING, NOT ELSEWHERE CLASSIFIED Comment/Plan: Physical therapy was able to walk patient 3 feet yesterday concerned that she will need assisted placement. Additional Notes: Due to the presence of and / or the risk of deterioration, my attendance to this patient required critical care time, including assessment/reassessment, documentation, ordering and interpreting ancillary studies, discussion with staff and consultants,patient and family, and excludes time spent on separately billable procedures. This individual is critically ill and in danger of dying. Case Care Discussed with: Patient, Nursing Staff, Resource Management Education/Counseling Given To: Patient Education/Counseling Given Regarding: Diagnosis, Treatment Total Time: Critical care 48 minutes Critical Care: Yes Code: 291
[2016-03-30 11:06] LABS: ABG Draw Site Left Radial; ALLEN'S TEST PASS; BEb 16.3 (+/- 2); TCO2 41.7 MMOL/L (23-27)
[2016-03-30] MEDS: PROBIOTIC BLEND TAB PO SCH ×2 (11:41→17:22)
[2016-03-30] MEDS: MAGNESIUM OXIDE 400 MG TAB PO SCH ×2 (11:42→17:22)
[2016-03-30] MEDS: Fioricet Tablet PO PRN (11:52)
[2016-03-30] MEDS: NICOTINE 21 MG PATCH TOP SCH (12:24)
[2016-03-30] MEDS ORDERED: NACL 0.65% NASAL 45 ML BOTTLE NAS PRN (15:44)
[2016-03-30] MEDS: This patient is receiving warfarin therapy SCH (17:21)
[2016-03-30] MEDS: WARFARIN 5 MG TAB PO SCH (17:22)
[2016-03-30] MEDS ORDERED: MORPHINE 2 MG/ML INJECTION IV PRN (17:42)
[2016-03-30] MEDS ORDERED: MORPHINE 10 MG/0.5 ML ORAL SYRINGE PO PRN (17:42)
[2016-03-30] MEDS ORDERED: LORAZEPAM 0.5 MG TAB PO PRN (17:44)
[2016-03-30] MEDS ORDERED: HYDROmorphone 1 MG INJECTION IV PRN (18:24)
[2016-03-30] MEDS: LORAZEPAM 2 MG/ML VIAL IV PRN (18:31)
[2016-03-30] MEDS: HYDROmorphone 1 MG INJECTION IV PRN ×2 (21:01→21:11)
[2016-03-30] MEDS: SENNA CONCENTRATE TAB PO SCH (21:02)
[2016-03-30] MEDS: PRAVASTATIN 40 MG TABLET PO SCH (21:08)
[2016-03-30] MEDS: TOPIRAMATE 25 MG TABLET PO SCH (21:09)
[2016-03-31] MEDS: Albuterol/Ipratropium Neb 3 ML NEB NEB SCH ×2 (01:55→08:17)
[2016-03-31] MEDS: ENOXAPARIN 60 MG/0.6 ML PFS SQ SCH (05:04)
[2016-03-31] MEDS: IMIPENEM CILASTATIN 250 MG in D5W 100 ML IV SCH ×2 (05:04→11:12)
[2016-03-31] MEDS: REGULAR INSULIN 100 UNITS/ML - 3 ML VIAL SQ SCH ×2 (05:14→11:31)
[2016-03-31 05:25] VITALS: BMI 22.4
[2016-03-31] MEDS: OXYCODONE HCL 5 MG TABLET PO PRN (05:25)
[2016-03-31] MEDS: PANTOPRAZOLE 40 MG TAB PO SCH (05:26)
[2016-03-31] MEDS: ISOSORBIDE MONONITRATE 30 MG TAB PO SCH (05:26)
[2016-03-31] MEDS: GABAPENTIN 300 MG CAP PO SCH ×2 (05:26→11:32)
[2016-03-31] MEDS: LEVOTHYROXINE 125 MCG (0.125 MG) TAB PO SCH (05:27)
[2016-03-31] MEDS: MIDODRINE HCL 5 MG TAB PO SCH ×2 (05:27→11:32)
[2016-03-31] MEDS: SUCRALFATE 1 GM TAB PO SCH ×2 (05:28→11:12)
[2016-03-31 08:06] LABS: MPV 7.5 fL (7.4-10.4)
[2016-03-31] MEDS: FUROSEMIDE 40 MG/4 ML VIAL IV SCH (08:17)
[2016-03-31] MEDS: LORAZEPAM 2 MG/ML VIAL IV PRN (08:17)
[2016-03-31] MEDS: MAGIC MOUTHWASH 180 ML ORAL SUSP PO SCH ×2 (08:17→11:12)
[2016-03-31] MEDS: INSULIN DETEMIR 100 UNITS/ML PEN SQ SCH (08:18)
[2016-03-31] MEDS: RANOLAZINE 500 MG EXT RELEASE TAB PO SCH (08:18)
[2016-03-31 08:22] LABS: BLOOD UREA NITROGEN 28 MG/DL (7-17); CALCIUM 8.3 MG/DL (8.4-10.2); CALCULATED OSMOLALITY 271 MOs/Kg (270-290); CHLORIDE 92 mEq/L (98-107); GLUCOSE 145 mg/dL (70-99); SODIUM LEVEL 136 mEq/L (137-146)
[2016-03-31 08:52] LABS: SEG NEUTROPHIL 90 % (45-76)
[2016-03-31] MEDS: LISINOPRIL 2.5 MG TAB PO SCH (08:58)
[2016-03-31] MEDS: METHYLPREDNISOLONE 40 MG/1 ML VIAL IV SCH (08:58)
[2016-03-31] MEDS: NYSTATIN ORAL SUSP 5 ML PO SCH ×2 (08:58→11:12)
[2016-03-31] MEDS ORDERED: LORAZEPAM 2 MG/ML VIAL IV PRN (09:28)
[2016-03-31] MEDS ORDERED: LORAZEPAM 1 MG TAB SL PRN (09:30)
[2016-03-31] MEDS: HYDROmorphone 1 MG INJECTION IV PRN (10:06)
[2016-03-31] MEDS: PROBIOTIC BLEND TAB PO SCH (11:12)
[2016-03-31] MEDS: MAGNESIUM OXIDE 400 MG TAB PO SCH (11:12)
[2016-03-31] MEDS: LEVOFLOXACIN 750 MG TAB PO SCH (11:12)
[2016-03-31] MEDS: NICOTINE 21 MG PATCH TOP SCH (11:31)
[2016-03-31 11:58] VITALS: BP 91/49; PULSE 90; TEMP 97.8
--- NOTE | 2016-03-31 12:05 | PCM.DCS92 ---
- Final/Secondary Discharge Diagnosis (1) Acute respiratory failure Acute J96.00 - ACUTE RESPIRATORY FAILURE, UNSP W HYPOXIA OR HYPERCAPNIA Present on Admission: Yes hypoxia J96.01 - Acute respiratory failure with hypoxia Comment: Extremely short of breath and hypoxic overnight and remains on BiPAP this morning. She is certainly critically ill in danger of dying and unfortunately is getting worse. I had a long discussion with her son and he indicated that she had commented about going home and he mentioned that she is referring to and not her home. I advise we might have to get hospice involved she does not turn around soon. (2) HCAP (healthcare-associated pneumonia) Acute J18.9 - PNEUMONIA, UNSPECIFIED ORGANISM Present on Admission: Yes Comment: Getting Primaxin Levaquin and probiotic for her pneumonia. Chest x- ray shows persistent right upper lobe infiltrate had overnight she developed acute respiratory failure and distress which resulted in her getting started on BiPAP. Family was concerned and I discussed with them the fact that she is getting worse and we may need to be talking about getting hospice involved with her care. Her son is aware of her deteriorating status and agrees that we may need hospice. Consideration for home hospice. (3) Bacteria in urine Acute R82.71 - BACTERIURIA Present on Admission: Yes Comment: VRE in urine is sensitive to ampicillin. Since she has pneumonia she is getting Primaxin for this and the UTI as she is allergic to penicillin. (4) COPD (chronic obstructive pulmonary disease) Acute J44.9 - CHRONIC OBSTRUCTIVE PULMONARY DISEASE, UNSPECIFIED Present on Admission: Yes COPD with acute exacerbation J44.1 - Chronic obstructive pulmonary disease with (acute) exacerbation Comment: Still has some mild wheezing. Continue to wean steroids. Increase activity as tolerated. Less short breath. (5) CHF (congestive heart failure) Acute I50.9 - HEART FAILURE, UNSPECIFIED Present on Admission: Yes unspecified congestive heart failure type unspecified congestive heart failure chronicity I50.9 - Heart failure, unspecified Comment: Patient is lost 7 L of fluid since admission equal to 7 kg of weight and less short of breath. Will decrease the IV Lasix and recheck her BNP. Chest x-ray shows right upper lobe infiltrate. (6) Diabetes mellitus Acute E11.9 - TYPE 2 DIABETES MELLITUS WITHOUT COMPLICATIONS Present on Admission: Yes type 2 without complication with manager terminal use E11.9 - Type 2 diabetes mellitus without complications; Z79.4 - buttermaker continuous churn (current) use of insulin Comment: Continue home medications. Accu-Cheks and sliding scale insulin. Steroids will likely exacerbate. Monitor glucoses. (7) Ambulatory dysfunction Acute R26.2 - DIFFICULTY IN WALKING, NOT ELSEWHERE CLASSIFIED Comment: Physical therapy was able to walk patient 3 feet yesterday concerned that she will need half-way placement. Discharge Disposition: Disc to Hospice Care Discharge Condition: Serious Fuctional Discharge Status: Bed Bound Physician Follow up/Referrals: Monroe Andrade MD [Staff Physician] - 1-2 Days Home Medications / New Prescriptions: No Action Warfarin Sodium [Coumadin] 5 mg PO DAILY Nitroglycerin [Nitrostat] 0.4 mg SL [id number] PRN PRN Reason: Chest Pain Or Discomfort Acidoph/L.bulg/Bif.b/S.thermop [Stephanie-Bid Caplet] 1 tab PO BID Furosemide [Lasix] 40 mg PO DAILY PRN PRN Reason: Edema Bisacodyl [Dulcolax] 5 mg PO DAILY PRN PRN Reason: Constipation Ondansetron HCl [Zofran] 4 mg PO Q8H PRN PRN Reason: Nausea/Vomiting Cyclobenzaprine HCl [Flexeril] 5 mg PO Q8H PRN PRN Reason: Muscle Spasms Acetaminophen [Mapap] 1,000 mg PO Q8H PRN PRN Reason: Pain Butalbital/Acetaminophen [Tencon 50-325 mg Tablet] 2 tab PO Q6H PRN PRN Reason: Headache Albuterol/Ipratropium Neb [Duoneb] 3 ml NEB Q6H PRN PRN Reason: Shortness Of Breath Sucralfate [Carafate] 1 gm PO QID Oxycodone HCl/Acetaminophen [Percocet 5-325 mg Tablet] 2 tab PO Q4H PRN PRN Reason: Pain Midodrine HCl 5 mg PO TID Albuterol/Ipratropium Neb [Duoneb] 3 ml NEB Q6H Magnesium Oxide [Mag-Ox] 400 mg PO BID Gabapentin 600 mg PO TID Topiramate [Topamax] 50 mg PO QHS Levofloxacin [Levaquin] 500 mg PO DAILY Pravastatin [Pravachol] 40 mg PO QHS Doxepin HCl 50 mg PO QHS Sennosides 17.2 mg PO QHS Nicotine [Nicoderm] 21 mg TOP DAILY Isosorbide Mononitrate [Isosorbide Mononitrate ER] 30 mg PO DAILY Lisinopril [Zestril] 2.5 mg PO DAILY Insulin Detemir [Levemir Flextouch] 30 unit SQ QAM Diltiazem HCl [Diltiazem 24Hr ER] 180 mg PO DAILY Prednisone [Deltasone, Orasone] 10 mg PO DIR Levothyroxine Sodium [Synthroid] 125 mcg PO DAILY Omeprazole 20 mg PO DAILY Ranolazine [Ranexa] 500 mg PO Q12H MEDICATIONS TO BE DETERMINED BY HOSPICE AT [facility]. LIKELY WILL CONTINUE THE MORPHINE AND ATIVAN WELL MANE CATHETER. O2 Device: Venturi Mask Oxygen Flow Rate: 55 (PERCENT) Oxygen to be used after Discharge: Continuous Diet at Discharge: As Tolerated Activity: As Tolerated - DC Summary Notes HPI/Notes: Ms Ku is an 80-year-old white female with multiple medical problems and a very complicated recent medical history. Unfortunately she is a poor historian and we have no records available here as she has recently been hospitalized in [place]. She apparently has known heart disease but has refused any intervention. She is followed regularly by Dr. Patrick in [place]. She was in the hospital in [place] in January or early February following a fall and a hip fracture. She has been at [facility] in [place] for the last week or so. She has been having increasing cough and shortness of breath over the last week. She was started on Levaquin at the facility but has not been improving and was referred to the emergency room for further evaluation and management. In the emergency room she is moderately hypoxic, wheezing diffusely with increased respiratory distress. She and her family stated very clearly that she is DNR but that they do want treatment for pain and respiratory issues. X-rays in the emergency room suggest bibasilar pneumonia. Given her hypoxia, respiratory distress, and multiple medical issues she will be admitted to the hospital for further evaluation and management. Hospital Course Note:: Discharge summary on patient named BEHZAD KU admitted to [facility] on 03/24/16 by Avinash Falk MD. Date of discharge is 03/31/2016. SHE WAS ADMITTED WITH LEFT UPPER LOBE PNEUMONIA AND SIGNIFICANT RESPIRATORY COMPROMISE. She also had a urinary tract infection related to vancomycin resistant enterococci but fortunately is sensitive to ampicillin and was given Primaxin due to her penicillin allergy. The Primaxin was also for pneumonia. Unfortunately she deteriorated during hospitalization and became more hypoxic requiring higher flow O2. Discussed with multiple family members and she already has a do not resuscitate status and requested comfort care should she not improve. I indicated that was reasonable and offered the opportunity to consult hospice. All agreed and hospice was consulted for her to go to hospice house. As soon as a bed is available they will be happy to take her. CC: Dr. Lupe Patrick Total Time: 39 min Code: 55899 (>30min.) - Physical Exam Vital Signs: Last Vital Signs Temp 97.8 F 03/31/16 11:58 Pulse 90 03/31/16 11:58 Resp 20 03/31/16 11:58 BP 91/49 L 03/31/16 11:58 Pulse Ox 80 L 03/31/16 11:58 Oxygen Pulse Oxygen Saturation 80 O2 Device Venturi Mask Oxygen Flow Rate 55 Fraction of Inspired Oxygen ( 55 FIO2) Constitutional: Alert, Distress, Well nourished. negative: Well appearing ( Chronically ill-appearing) Oriented to: Time, Person, Place - HEENT Head: Normal ( normocephalic) Eye: Normal (PERRL, EOMI, Sclera white) Oropharynx: Normal ENT EAC: Normal (No oropharyngeal lesions or erythema. Mucous membranes are dry. ) TMJ: Normal Nose: No Symptoms Reported. negative: Congestion, Bleeding, Discharge, Injection, Swelling, Deformity, Ecchymosis, Tender, Abrasion, Laceration - Respiratory/Cardiovascular Respiratory: Diminished, Rhonchi, Wheezes. negative: Rales Cardiovascular: Normal (RRR , Normal S1, S2. No murmurs, rubs, or gallops. PMI non-displaced. Carotids: no carotid bruits. No bradycardia or tachycardia. DP pulses 2+ bilaterally.) - GI Auscultation: Normal (NABS) Palpation: Normal (Soft,No rebound or guarding, non distended) Tenderness: Non tender (No rebound or guarding) Fajardo's Sign: Negative - Musculoskeletal Back: Normal (Non-Tender). negative: Abrasion Extremities: Edema, Pedal Edema (+1 edema in feet) - Integumentary Skin: Normal (Warm dry no rashes) Lymphatics: Normal (no adenopathy). negative: Adenopathy - Neurologic Motor Function: Abnormal (GENERALIZED WEAKNESS) Cerebellar: Normal Mood Description: Agitated Thought: Coherent Perception: Normal
--- NOTE | 2016-03-31 13:24 | CAPUEKG ---
[place], [place] Test Date: 2016-03-29 Pat Name: BEHZAD FORRESTER Department: Room: 452 Gender: Female Spindle Maker: JORDYN CRONIN: Requested By: Order Number: Reading MD: Rodney Lui Measurements Intervals [place] Rate: 98 P: 58 CT: 148 QRS: 54 QRSD: 80 T: -17 QT: 372 QTc: 474 Interpretive Statements Sinus rhythm with occasional premature ventricular complexes and Possible premature atrial complexes some with aberrant conduction Possible Inferior infarct, age undetermined ST \T\ T wave abnormality, diffuse non-specific No change from prior tracing. Abnormal ECG Electronically Signed On 03-31-16 13:23:43 EST by Rodney Lui <[id number] [id number]
== END 2016-03-31 14:13 | disposition hospice, inpatient (51) | DRG 193 ==
LOC: ED 11:20 → PCU 13:58
PROVIDERS: ADMIT Hospitalist; ATTEND Internal Medicine
PROC: 4A033R1 Measurement of Arterial Saturation, Peripheral, Percutaneous Approach (ICD-10-PCS; principal; 2016-03-24)
PROC: B246ZZZ Ultrasonography of Right and Left Heart (ICD-10-PCS; 2016-03-28)
PROC: 5A09457 Assistance with Respiratory Ventilation, 24-96 Consecutive Hours, Continuous Positive Airway Pressure (ICD-10-PCS; 2016-03-29)
DX: J18.9 Pneumonia, unspecified organism (principal); J96.01 Acute respiratory failure with hypoxia; I11.0 Hypertensive heart disease with heart failure; J44.1 Chronic obstructive pulmonary disease with (acute) exacerbation; I50.9 Heart failure, unspecified; E11.9 Type 2 diabetes mellitus without complications; B95.2 Enterococcus as the cause of diseases classified elsewhere; N39.0 Urinary tract infection, site not specified; Y95 Nosocomial condition; Z51.5 Encounter for palliative care; R26.2 Difficulty in walking, not elsewhere classified; I25.10 Atherosclerotic heart disease of native coronary artery without angina pectoris; S72.009D Fracture of unspecified part of neck of unspecified femur, subsequent encounter for closed fracture with routine healing; W19.XXXD Unspecified fall, subsequent encounter; Z66 Do not resuscitate; J02.9 Acute pharyngitis, unspecified; R25.1 Tremor, unspecified; Z16.21 Resistance to vancomycin; Z16.24 Resistance to multiple antibiotics; K13.79 Other lesions of oral mucosa; E78.00 Pure hypercholesterolemia, unspecified; M19.90 Unspecified osteoarthritis, unspecified site; E03.9 Hypothyroidism, unspecified; I25.2 Old myocardial infarction; Z88.6 Allergy status to analgesic agent; Z88.0 Allergy status to penicillin; Z88.8 Allergy status to other drugs, medicaments and biological substances; Z88.1 Allergy status to other antibiotic agents; Z88.5 Allergy status to narcotic agent; Z88.2 Allergy status to sulfonamides; Z79.4 Long term (current) use of insulin; Z79.52 Long term (current) use of systemic steroids; Z79.01 Long term (current) use of anticoagulants
CPT/HCPCS: 36415; 36569; 36600; 70450; 71010; 76937; 77001; 80048; 80053; 80162; 81001; 82043; 82550; 82803; 82962; 83036; 83605; 83735; 83880; 84484; 85007; 85025; 85027; 85379; 85610; 85730; 87040; 87077; 87086; 87186; 93005; 93306; 93970; 94640; 94660; 96361; 96365; 96366; 96372; 96375; 97162; 99285; G0237; J0692; J0743; J1170; J1642; J1650; J1741; J1940; J1956; J2001; J2020; J2060; J2920; J2930; J3480; J3490; J7030; J7040; J7060; J7620